=== PATIENT | male | born 1955 | race Caucasian/White ===

== ENCOUNTER 2018-06-16 18:27 | Inpatient (IN) | payer MEDICARE, OTHER ==
[2018-06-16] MEDS ORDERED: VANCOMYCIN IV PER PHARMACY 1 EACH MISC MISCELLANE PRN (19:00)
[2018-06-16] MEDS ORDERED: LEVOFLOXACIN 750MG-D5W PMX 750 MG in DEXTROSE/WATER 1 150ML.BAG IVPB STA (19:00)
[2018-06-16 19:14] LABS: Basophils % (A) 0 %; Eosinophils % (A) 0 %; HGB 15.3 gm/dL (13.0-17.5); Lymphocytes # (A) 1.4 k/uL (1.0-4.8); Lymphocytes % (A) 8 %; MCH 30.6 pg (25.0-35.0); MCHC 33.9 g/dL (31.0-37.0); MCV 90.3 fL (80.0-100.0); Mean Platelet Volume 6.8; Monocytes % (A) 6 %; Neutrophils # (A) 14.8 k/uL (1.3-7.7); Neutrophils % (A) 85 %; Platelet Count 242 k/uL (150-450); RBC 4.99 m/uL (4.30-5.90); RDW 13.3 % (11.5-15.5); WBC 17.5 k/uL (3.8-10.6)
[2018-06-16] MEDS: SODIUM CHLORIDE 0.9% 500 ML 500 ML IV SCH ×4 (19:14→21:38)
[2018-06-16 19:23] LABS: Appearance,Urine Cloudy (Clear); Bacteria,Urine Occasional /hpf; Bilirubin,Urine Negative (Negative); Blood,Urine Small (Negative); Color,Urine Yellow; Glucose,Urine (UA) Negative (Negative); Ketones,Urine Negative (Negative); Leukocyte Esterase,Urine Large (Negative); Mucus,Urine Few /hpf; Nitrite,Urine Positive (Negative); PH, Urine 5.5 (5.0-8.0); Protein,Urine Trace (Negative); RBC,Urine 6 /hpf (0-5); Specific Gravity,Urine 1.023 (1.001-1.035); Squamous Epithelial Cell,Urine 1 /hpf (0-4); Urobilinogen,Urine <2.0 mg/dL (<2.0); WBC,Urine 159 /hpf (0-5)
[2018-06-16 19:25] LABS: Albumin 3.9 g/dL (3.5-5.0); Calcium 9.4 mg/dL (8.4-10.2); Total Bilirubin 0.9 mg/dL (0.2-1.3); Total Protein 6.6 g/dL (6.3-8.2)
[2018-06-16 19:29] LABS: Partial Thromboplastin Time 27.7 sec (22.0-30.0); Prothrombin Time 10.4 sec (9.0-12.0)
[2018-06-16] MEDS ORDERED: VANCOMYCIN 1,750 MG in SODIUM CHLORIDE 0.9% 500 ML 500 ML IVPB ONE (19:30)
[2018-06-16 19:34] LABS: Potassium 4.2 mmol/L (3.5-5.1)
--- NOTE | 2018-06-16 20:03 | XR ---
EXAMINATION TYPE: XR abdomen 2V DATE OF EXAM: 06/16/2018 CLINICAL HISTORY: Abdominal pain with dysuria TECHNIQUE: 2 supine AP images of the abdomen obtained. COMPARISON: None. FINDINGS: Upright radiograph reveals no evidence of pneumoperitoneum. There is no dilated loops of la rge or small bowel. Limited evaluation of lower thorax is unremarkable. No evidence of acute osseous pathology. No abnormal intra-abdominal or pelvic calcifications. Degenerative type changes are noted of the hips and sacroiliac joints. There is loss of delineation of the inferolateral right aspect of the sacrum. This is likely secondary to overlying bowel gas. IMPRESSION: 1. No acute intra-abdominal or pelvic process. 2. Loss of the cortical delineation of the inferolateral right aspect of the sacrum. This is favored to be projectional from overlying bowel gas. Recommend short-term radiographic follow-up of the sacru m in multiple projections to exclude an underlying lytic osseous lesion.
--- NOTE | 2018-06-16 20:07 | XR ---
EXAMINATION TYPE: XR chest 2V DATE OF EXAM: 06/16/2018 COMPARISON: NONE HISTORY: Fever TECHNIQUE: Frontal and lateral views of the chest are obtained. FINDINGS: Minimal bibasilar subsegmental atelectasis. No focal airspace disease. No pleural effusion or pneumothorax. The cardiothymic silhouette is within normal limits. Limits evaluation of the upper abdomen is unremarkable. Osseous structures are intact. IMPRESSION: No acute cardiopulmonary process.
--- NOTE | 2018-06-16 20:09 | ED ---
General Adult HPI - General Chief complaint: Abdominal Pain Stated complaint: ABDOMINAL PAIN, HEAD PAIN, COLD Time Seen by Provider: 06/16/18 18:43 Source: patient, family, RN notes reviewed, old records reviewed Mode of arrival: ambulatory Limitations: no limitations - History of Present Illness Initial comments: Chief complaint and history of present illness this is a 63-year-old male here with family. The patient reports since 4 AM he's had a fever and difficulty urinating. He reports he urinates every 5 minutes only a few drops. Also hurts when he does it. Patient reports happened one time before when he was much younger. - Related Data Home Medications Medication Instructions Recorded Confirmed Acetaminophen [Tylenol] 325 mg PO Q4H PRN 06/16/18 06/16/18 Allergies Allergy/AdvReac Type Severity Reaction Status Date / Time Penicillins Allergy Unknown Verified 06/16/18 19:10 Review of Systems ROS Statement: Those systems with pertinent positive or pertinent negative responses have been documented in the HPI. Review of systems. Mild headache but no evidence of any meningeal irritation. Denies any chest pain or shortness of breath and complains of suprapubic area discomfort. Also reports she's had a long-standing left hernia. Patient is complaining of frequency urgency and dysuria with fever at home. The patient is edentulous and difficult to understand everything he says because he has difficulty pronouncing certain words. Review of previous CAT scan evaluation of his abdomen. It was reported that he may have renal cell carcinoma on the left kidney. Patient reports she's never had surgery. Denies ever having had a biopsy of that area either. To his knowledge he has not had cancer. He does report that he was evaluated for the left inguinal hernia but did not like the surgeon and never went back. Past medical problems; intestinal infections, surgeries include left ankle surgery with a plate. Family history significant for lung cancer. Patient has ALLERGIES to penicillin which causes symptoms vomit. He does not have anaphylactic reactions. Patient denies smoking denies drinking. ROS Other: All systems not noted in ROS Statement are negative. Past Medical History Past Medical History: No Reported History History of Any Multi-Drug Resistant Organisms: None Reported Additional Past Surgical History / Comment(s): left ankle surgery Past Psychological History: PTSD Smoking Status: Former smoker Past Alcohol Use History: None Reported Past Drug Use History: None Reported General Exam - General Exam Comments Initial Comments: General: The patient is awake and alert, he with a complaint of fever, frequency urgency and dysuria. Lower abdominal discomfort. Vital signs shows temperature 100, pulse 131, respiratory rate 20 blood pressure 102/67, pulse ox 99% on room air. Eye: Pupils are equal, round and reactive to light, extra-ocular movements are intact ; there is normal conjunctiva bilaterally. No signs of icterus. Ears, nose, mouth and throat: There are moist mucous membranes and no oral lesions. Patient is edentulous. Difficulty with pronunciation. Neck: The neck is supple, there is no tenderness. Cardiovascular: There is a regular rate and rhythm. No murmur, rub or gallop is appreciated. Respiratory: Lungs are clear to auscultation, respirations are non-labored, breath sounds are equal. No wheezes, stridor, rales, or rhonchi. Gastrointestinal: Patient complains of suprapubic discomfort with frequency urgency and dysuria. Large left inguinal hernia filling the left scrotum. Back: There is no tenderness to palpation in the midline. There is no obvious deformity. No rashes noted. Musculoskeletal: Normal ROM, no tenderness, There is no pedal edema. There is no calf tenderness or swelling. Sensation intact. Pulses equal bilaterally 2+. Neurological: CN II-XII intact, There are no obvious motor or sensory deficits. Coordination appears grossly intact. Speech is normal. No focal or lateralizing findings Skin: Skin is warm and dry and no rashes or lesions are noted. Psychiatric: Cooperative, Limitations: no limitations Course Vital Signs 06/16/18 06/16/18 06/16/18 18:29 19:00 19:21 Temperature 99.6 F 100.1 F H Pulse Rate 131 H 112 H Respiratory 20 18 Rate Blood Pressure 102/67 108/78 O2 Sat by Pulse 99 99 Oximetry 06/16/18 06/16/18 06/16/18 20:50 22:12 23:16 Temperature 99.1 F Pulse Rate 100 100 102 H Respiratory 17 18 17 Rate Blood Pressure 98/71 103/71 106/59 O2 Sat by Pulse 99 99 99 Oximetry EKG Findings - EKG Comments: EKG Findings:: EKG was done and reviewed at 1847 showing sinus tachycardia rate 111. Nonspecific ST T wave changes. [place] interval was 138 QRS 88 QT [address] Hoffman Medical Decision Making - Medical Decision Making Medical decision making; 63-year-old male who comes emergency room because of difficulty urinating with frequency urgency and dysuria. This all started around 4 AM. Presents emergency room with a temperature of 100.1. The patient's labs show white count of 17 hemoglobin 15 hematocrit of 45 with a potassium of 4.2. BUN 18 creatinine 1.05 with a GFR 75. Glucose 116. Urine shows positive for nitrite and leuk esterase. 6 red blood cells and 159 white cells. The patient's urine was being cultured. patient was hydrated with 2 L of normal saline. At that time he was also started on vancomycin and Levaquin (Levaquin was used because initially the patient said he had an ALLERGY to penicillin.. Patient states he has now to penicillin but only causes nausea and vomiting. No anaphylactic type reaction. X-ray show; x-ray of the abdomen was done and reviewed by radiologist his impression is no acute intra-abdominal or pelvic processes. Loss of cortical delineation of the inferolateral right aspect of the sacrum. This is favored to be projectional from overlying bowel gas. Recommend short-term radiograph follow-up of the sacrum in multiple projections to exclude underlying lytic osseous lesion. As read by Dr. Washington. X-ray of the chest was done and reviewed by radiologist his findings are; minimal bibasal sub-segmental atelectasis. No focal airspace disease. No pleural effusion or pneumothorax. The cardiothymic silhouette is normal limits. Limits evaluation of the upper abdomen is unremarkable. Osseous structures are intact. Impression no acute cardiopulmonary process. As read by Dr. Washington Patient had CAT scan of the abdomen with IV and oral contrast. The radiologist' s impression includes there is some mild infiltrate and atelectasis in the lung bases. There is a hiatal hernia. There is no pleural effusion. There is 1 cm cyst in the right lobe of the liver. The bile ducts were not dilated. Gallbladder appears normal. Spleen is normal. There is no pancreatic mass. There is a 3.9 cm rounded enhancing mass on the lateral aspect of the left kidney. This also contained some fat. The kidney shows satisfactory contrast opacification. There are left sided renal parapelvic cyst. Ureter is not dilated. There is no hydronephrosis. There is no retroperitoneal adenopathy. Bladder distended smoothly. There is a large left sided inguinal and scrotal hernia contains bowel. This contained some sigmoid colon. I see no evidence of bowel obstruction. The small bowel appears normal. There is no evidence of a thickened appendix. There is no mesenteric edema or adenopathy. Lumbar spine is intact. The bony pelvis intact. There is no compression fracture. Impression; exophytic left renal mass is a few millimeters larger than old computed tomography scan. 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 Stable left renal parapelvic cyst. No renal obstruction. Large left sided scrotal hernia unchanged. Hiatal hernia unchanged. No infiltrate at the lung bases compared to old exam. As read by Dr. Hargrove The patient be admitted for further evaluation and continued antibiotic therapy. Admitting diagnosis urinary tract infection The case discussed Dr. Solano patient be admitted to her service. We did discuss the patient's CAT scan results including the left inguinal hernia. The patient will continue on IV antibiotics. On discharge patient's heart rate was 96 blood pressure 106/59 patient is alert - Lab Data Result diagrams: 06/16/18 18:45 06/16/18 18:45 Lab Results 06/16/18 06/16/18 06/16/18 Range/Units 18:45 18:45 18:45 WBC 17.5 H (3.8-10.6) k/uL RBC 4.99 (4.30-5.90) m/uL Hgb 15.3 (13.0-17.5) gm/dL Hct 45.0 (39.0-53.0) % MCV 90.3 (80.0-100.0) fL MCH 30.6 (25.0-35.0) pg MCHC 33.9 (31.0-37.0) g/dL RDW 13.3 (11.5-15.5) % Plt Count 242 (150-450) k/uL Neutrophils % 85 % Lymphocytes % 8 % Monocytes % 6 % Eosinophils % 0 % Basophils % 0 % Neutrophils # 14.8 H (1.3-7.7) k/uL Lymphocytes # 1.4 (1.0-4.8) k/uL Monocytes # 1.0 (0-1.0) k/uL Eosinophils # 0.0 (0-0.7) k/uL Basophils # 0.0 (0-0.2) k/uL PT (9.0-12.0) sec INR (<1.2) APTT (22.0-30.0) sec Sodium 137 (137-145) mmol/L Potassium 4.2 (3.5-5.1) mmol/L Chloride 104 (98-107) mmol/L Carbon Dioxide 25 (22-30) mmol/L Anion Gap 8 mmol/L BUN 18 (9-20) mg/dL Creatinine 1.05 (0.66-1.25) mg/dL Est GFR (CKD-EPI)AfAm 86 (>60 ml/min/1.73 sqM) Est GFR (CKD-EPI)NonAf 75 (>60 ml/min/1.73 sqM) Glucose 116 H (74-99) mg/dL Plasma Lactic Acid Tan 1.2 (0.7-2.0) mmol/L Calcium 9.4 (8.4-10.2) mg/dL Total Bilirubin 0.9 (0.2-1.3) mg/dL AST 17 (17-59) U/L ALT 25 (21-72) U/L Alkaline Phosphatase 100 (38-126) U/L Total Protein 6.6 (6.3-8.2) g/dL Albumin 3.9 (3.5-5.0) g/dL Urine Color Urine Appearance (Clear) Urine pH (5.0-8.0) Ur Specific [place] (1.001-1.035) Urine Protein (Negative) Urine Glucose (UA) (Negative) Urine Ketones (Negative) Urine Blood (Negative) Urine Nitrite (Negative) Urine Bilirubin (Negative) Urine Urobilinogen (<2.0) mg/dL Ur Leukocyte Esterase (Negative) Urine RBC (0-5) /hpf Urine WBC (0-5) /hpf Ur Squamous Epith Cells (0-4) /hpf Urine Bacteria (None) /hpf Urine Mucus (None) /hpf Influenza Type A RNA (Not Detectd) Influenza Type B (PCR) (Not Detectd) 06/16/18 06/16/18 06/16/18 Range/Units 18:45 18:52 19:05 WBC (3.8-10.6) k/uL RBC (4.30-5.90) m/uL Hgb (13.0-17.5) gm/dL Hct (39.0-53.0) % MCV (80.0-100.0) fL MCH (25.0-35.0) pg MCHC (31.0-37.0) g/dL RDW (11.5-15.5) % Plt Count (150-450) k/uL Neutrophils % % Lymphocytes % % Monocytes % % Eosinophils % % Basophils % % Neutrophils # (1.3-7.7) k/uL Lymphocytes # (1.0-4.8) k/uL Monocytes # (0-1.0) k/uL Eosinophils # (0-0.7) k/uL Basophils # (0-0.2) k/uL PT 10.4 (9.0-12.0) sec INR 1.0 (<1.2) APTT 27.7 (22.0-30.0) sec Sodium (137-145) mmol/L Potassium (3.5-5.1) mmol/L Chloride (98-107) mmol/L Carbon Dioxide (22-30) mmol/L Anion Gap mmol/L BUN (9-20) mg/dL Creatinine (0.66-1.25) mg/dL Est GFR (CKD-EPI)AfAm (>60 ml/min/1.73 sqM) Est GFR (CKD-EPI)NonAf (>60 ml/min/1.73 sqM) Glucose (74-99) mg/dL Plasma Lactic Acid Tan (0.7-2.0) mmol/L Calcium (8.4-10.2) mg/dL Total Bilirubin (0.2-1.3) mg/dL AST (17-59) U/L ALT (21-72) U/L Alkaline Phosphatase (38-126) U/L Total Protein (6.3-8.2) g/dL Albumin (3.5-5.0) g/dL Urine Color Yellow Urine Appearance Cloudy (Clear) Urine pH 5.5 (5.0-8.0) Ur Specific [place] 1.023 (1.001-1.035) Urine Protein Trace H (Negative) Urine Glucose (UA) Negative (Negative) Urine Ketones Negative (Negative) Urine Blood Small H (Negative) Urine Nitrite Positive (Negative) Urine Bilirubin Negative (Negative) Urine Urobilinogen <2.0 (<2.0) mg/dL Ur Leukocyte Esterase Large H (Negative) Urine RBC 6 H (0-5) /hpf Urine WBC 159 H (0-5) /hpf Ur Squamous Epith Cells 1 (0-4) /hpf Urine Bacteria Occasional H (None) /hpf Urine Mucus Few H (None) /hpf Influenza Type A RNA Not Detected (Not Detectd) Influenza Type B (PCR) Not Detected (Not Detectd) Disposition Clinical Impression: Urinary tract infection, History of left inguinal hernia Disposition: ADMITTED IP TO THIS HOSP Condition: Fair Referrals: Linh Matthews MD [Primary Care Provider] - 1-2 days
[2018-06-16] MEDS ORDERED: IOPAMIDOL-300 CONTRAST 30 ML VIAL (ORAL USE) PO PRN (20:53)
--- NOTE | 2018-06-16 23:14 | CT ---
EXAMINATION TYPE: CT abdomen pelvis w con DATE OF EXAM: 06/16/2018 COMPARISON: 04/06/2016 HISTORY: Lower abdominal pain CT DLP: 1414.1 mGycm Automated exposure control for dose reduction was used. TECHNIQUE: Helical acquisition of images was performed from the lung bases through the pelvis. CONTRAST: Performed with Oral Contrast and with IV Contrast, patient injected with 100 mL of Isovue 300. FINDINGS: There is some mild infiltrate and atelectasis at the lung bases. There is hiatal hernia. There is no pleural effusion. There is 1.5 cm cyst in the right lobe of the liver. The bile ducts are not dilated. Gallbladder appe ars normal. Spleen is normal. There is no pancreatic mass. There is 3.9 cm rounded enhancing mass on the lateral aspect of the left kidney. This also contains some fat. The kidneys show satisfactory con trast opacification. There are left-sided renal parapelvic cysts. The ureters are not dilated. There is no hydronephrosis. There is no retroperitoneal adenopathy. Bladder distends smoothly. There is a large left side inguinal and scrotal hernia that contains bowel . This contains some sigmoid colon. I see no evidence of a bowel obstruction. The small bowel appears normal. There is no evidence of a thickened appendix. There is no mesenteric edema or adenopathy. Reyna mbar spine is intact. The bony pelvis is intact. There is no compression fracture. IMPRESSION: EXOPHYTIC LEFT RENAL MASS IS A FEW MILLIMETERS LARGER THAN OLD CT SCAN. 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 STABLE LEFT RENAL PARAPELVIC CYST. NO RENAL OBSTRUCTION. LARGE LEFT SIDE SCROTAL HERNIA UNCHANGED. HIATAL HERNIA UNCHANGED. NEW INFILTRATES AT THE LUNG BASES COMPARED TO OLD EXAM.
[2018-06-16] MEDS ORDERED: NALOXONE 0.4 MG/ML 1 ML VIAL IV PRN (23:33)
[2018-06-17 00:50] VITALS: BMI 30.9
[2018-06-17] MEDS: ACETAMINOPHEN TAB 325 MG TAB PO PRN (01:02)
[2018-06-17 05:46] LABS: Basophils % (A) 0 %; Eosinophils % (A) 0 %; HCT 39.8 % (39.0-53.0); HGB 13.4 gm/dL (13.0-17.5); Lymphocytes # (A) 2.5 k/uL (1.0-4.8); Lymphocytes % (A) 16 %; MCH 30.7 pg (25.0-35.0); MCHC 33.6 g/dL (31.0-37.0); MCV 91.4 fL (80.0-100.0); Monocytes # (A) 0.9 k/uL (0-1.0); Monocytes % (A) 6 %; Neutrophils % (A) 76 %; Platelet Count 199 k/uL (150-450); RBC 4.35 m/uL (4.30-5.90); RDW 13.4 % (11.5-15.5); WBC 15.8 k/uL (3.8-10.6)
[2018-06-17 06:00] LABS: Albumin 3.1 g/dL (3.5-5.0); Potassium 4.4 mmol/L (3.5-5.1); Total Bilirubin 0.9 mg/dL (0.2-1.3); Total Protein 5.6 g/dL (6.3-8.2)
[2018-06-17 06:39] LABS: Calcium 8.7 mg/dL (8.4-10.2)
[2018-06-17] MEDS: FAMOTIDINE 20 MG TAB PO SCH ×2 (08:10→20:46)
[2018-06-17] MEDS ORDERED: VANCOMYCIN 1,750 MG in SODIUM CHLORIDE 0.9% 500 ML 500 ML IVPB SCH ×4 (09:00)
[2018-06-17] MEDS ORDERED: VANCOMYCIN IV PER PHARMACY 1 EACH MISC MISCELLANE PRN (09:48)
[2018-06-17] MEDS ORDERED: SODIUM CHLORIDE 0.9% 1,000 ML IV ONE (09:50)
[2018-06-17] MEDS ORDERED: HYDROcodone/APAP 5-325MG 1 EACH TAB PO PRN (10:06)
--- NOTE | 2018-06-17 10:06 | P.HPIM ---
History of Present Illness This is a pleasant 63% small with past medical history of pneumonia and left inguinal hernia about 10 years ago. Patient presents because of dysuria and difficulty urinating. Patient states that his problems started last Sunday by 3 days ago with dysuria and urgency with increased frequency small amount of urine. And yesterday he could not void so he decided to come to the emergency room. Patient was complaining also from loose bowel movement and mild right upper quadrant abdominal pain. He was comes in with dry cough no phlegm. No much dyspnea or chest pain. On admission he had a fever of 100.1. Blood pressure or Currently he is Little bit hypotensive 98/61. Currently his blood pressure. Bolus of 1 L of fluid is a provided and started on normal saline 100 mm per hour Patient already given ceftriaxone, levofloxacin and IV vancomycin twice a day in the emergency room. on admission showing creatinine 1.05, and this morning 1.02. Rest of the CMP was unremarkable. Leukocytosis of 17.5, down to 15.8 K. Darline CBC was unremarkable. Urinalysis was suspicious for infection with large leukocyte esterase and WBC 159 in the urine. Urine culture sent and result is pending. Review of Systems CONSTITUTIONAL: No fever, no malaise, no fatigue. HEENT: No recent visual problems or hearing problems. Denied any sore throat. CARDIOVASCULAR: No orthopnea, PND, no palpitations, no syncope. PULMONARY: No shortness of breath, no cough, no hemoptysis. GASTROINTESTINAL: No diarrhea, no nausea, no vomiting, no abdominal pain. Normoactive bowel sounds. NEUROLOGICAL: No headaches, no weakness, no numbness. HEMATOLOGICAL: Denies any bleeding or petechiae. GENITOURINARY: Denies any burning micturition, frequency, or urgency. MUSCULOSKELETAL/RHEUMATOLOGICAL: Denies any joint pain, swelling, or any muscle pain. ENDOCRINE: Denies any polyuria or polydipsia. Past Medical History Past Medical History: Pneumonia Additional Past Medical History / Comment(s): Inguinal hernia for 10 years History of Any Multi-Drug Resistant Organisms: None Reported Additional Past Surgical History / Comment(s): left ankle surgery Past Anesthesia/Blood Transfusion Reactions: No Reported Reaction Past Psychological History: PTSD Smoking Status: Never smoker Past Alcohol Use History: None Reported Past Drug Use History: None Reported Medications and Allergies Home Medications Medication Instructions Recorded Confirmed Type Acetaminophen [Tylenol] 325 mg PO Q4H PRN 06/16/18 06/16/18 History Allergies Allergy/AdvReac Type Severity Reaction Status Date / Time Penicillins Allergy Unknown Verified 06/16/18 19:10 Physical Exam Vitals: Vital Signs Temp Pulse Pulse Resp BP BP Pulse Ox 06/17/18 08:00 98.4 F 83 18 98/61 97 06/17/18 04:00 98.5 F 90 16 96/63 97 06/17/18 01:12 98.6 F 96 16 119/70 99 06/17/18 00:23 99.3 F 98 18 105/58 99 06/16/18 23:16 102 H 17 106/59 99 06/16/18 22:12 100 18 103/71 99 06/16/18 20:50 99.1 F 100 17 98/71 99 06/16/18 19:21 112 H 18 108/78 99 06/16/18 19:00 100.1 F H 06/16/18 18:29 99.6 F 131 H 20 102/67 99 Intake and Output 06/16/18 06/17/18 06/17/18 22:59 06:59 14:59 Output Total 825 200 Balance -825 -200 Output: Urine 825 200 Other: # Voids 0 Weight 104.326 kg 109.5 kg Results CBC & Chem 7: 06/17/18 05:10 06/17/18 05:10 Labs: Abnormal Lab Results - Last 24 Hours (Table) 06/16/18 06/16/18 06/16/18 Range/Units 18:45 18:45 18:52 WBC 17.5 H (3.8-10.6) k/uL Neutrophils # 14.8 H (1.3-7.7) k/uL Sodium (137-145) mmol/L Glucose 116 H (74-99) mg/dL AST (17-59) U/L Total Protein (6.3-8.2) g/dL Albumin (3.5-5.0) g/dL Urine Protein Trace H (Negative) Urine Blood Small H (Negative) Ur Leukocyte Esterase Large H (Negative) Urine RBC 6 H (0-5) /hpf Urine WBC 159 H (0-5) /hpf Urine Bacteria Occasional H (None) /hpf Urine Mucus Few H (None) /hpf 06/17/18 06/17/18 Range/Units 05:10 05:10 WBC 15.8 H (3.8-10.6) k/uL Neutrophils # 12.0 H (1.3-7.7) k/uL Sodium 135 L (137-145) mmol/L Glucose 104 H (74-99) mg/dL AST 15 L (17-59) U/L Total Protein 5.6 L (6.3-8.2) g/dL Albumin 3.1 L (3.5-5.0) g/dL Urine Protein (Negative) Urine Blood (Negative) Ur Leukocyte Esterase (Negative) Urine RBC (0-5) /hpf Urine WBC (0-5) /hpf Urine Bacteria (None) /hpf Urine Mucus (None) /hpf Microbiology - Last 24 Hours (Table) 06/16/18 18:52 Urine Culture - Preliminary Urine,Voided Thrombosis Risk Factor Assmnt - Choose All That Apply Any of the Below Risk Factors Present?: Yes Each Factor Represents 1 point: Obesity (BMI >25), Swollen legs (current) Other Risk Factors: Yes Each Risk Factor Represents 2 Points: Age 61-74 years Thrombosis Risk Factor Assessment Total Risk Factor Score: 4 Thrombosis Risk Factor Assessment Level: Moderate Risk Assessment and Plan Assessment: Acute urinary tract infection New infiltrate and lung bases, suspicious for pneumonia, mild Leukocytosis, secondary to above Left kidney mass, about 3.9 cm. Suspicious for angiomyolipoma Loose bowel movement, mostly reactive diarrhea. Right lobe hepatic cyst, 1.5 cm Large left side inguinal and scrotal hernia. Plan: This is a pleasant 63 years old male who presents with UTI,and enlarging left renal mass. Continue with antibiotics, continue with IV fluids. Urological consult. Call infectious disease consult. Bladder scan. Pain management. Labs and medication were reviewed. Continue same treatment. Continue with symptomatic treatment. Resume home medication. Monitor lytes and vitals. DVT and GI prophylaxis. Further recommendations of the clinical course of the patient DVT prophylaxis: Subcutaneous heparin GI Prophylaxis: Pepcid PT/OT: Pending Prognosis is guarded
[2018-06-17] MEDS: SODIUM CHLORIDE 0.9% 1,000 ML IV SCH ×2 (10:15→20:47)
[2018-06-17] MEDS: HEPARIN SODIUM,PORCINE 5,000 UNIT/ML 1 ML VIAL SQ SCH ×2 (10:15→20:46)
[2018-06-17] MEDS ORDERED: LEVOFLOXACIN 500MG-D5W PMX 500 MG in DEXTROSE/WATER 1 100ML.BAG IVPB SCH (19:00)
--- NOTE | 2018-06-17 19:36 | P.GSCN ---
History of Present Illness Consult date: 06/17/18 Reason for Consult: Febrile urinary tract infection and left renal mass History of present illness: The patient is a 63-year-old male admitted through the emergency room late on for treatment of a urinary tract infection associated with a fever. The patient says that his symptoms began on the morning of 06/15 and included urinary frequency with urgency and chills. He said that his urine was dark colored and there was dysuria. He denied any gross hematuria. He had no abdominal or flank pain. His symptoms continued and he was seen in the emergency room on 06/16. He had a temperature of 100.1. White blood count was 17,500. Lactic acid was 1.2. BUN/creatinine were 18/1.05. A urinalysis was positive for nitrite and showed evidence of pyuria. Computed tomography scan of the abdomen and pelvis was obtained and identified a 3.9 cm mass in the lateral superior pole of the right kidney which had increased slightly in size from a previous computed tomography scan performed in 04/2016. The radiologist thought that there was some fat present within the mass suggestive of an angiomyolipoma. Since the patient was admitted he has been afebrile. His postvoid residual has been checked multiple times and is low. He says that his dysuria and urinary frequency have improved since he was admitted. He says that he experienced a urinary tract infection over 20 years ago but has had no problems since then. He normally voids every 3-4 hours during the day and twice at night. I had previously seen this patient in 05/2016 due to the mass noted in the upper pole of left kidney on a computed tomography scan of the abdomen with IV contrast which was done on 04/23/2016. The mass was suggestive of a renal cell carcinoma and I discussed treatment via partial nephrectomy or an ablative procedure with the patient at that time but he did not set up an appoint to discuss this further. He also did not show up for an appointment that was made for him later in 2017. He has had no imaging of his kidneys since then. He has no abdominal pain and has never experienced gross hematuria. Review of Systems - Constitutional Reports anorexia, Reports chills, Reports fever, Reports malaise - Cardiovascular Denies chest pain, Denies shortness of breath - Respiratory Denies cough - Gastrointestinal Reports diarrhea, Denies abdominal pain, Denies vomiting - Genitourinary Reports as per HPI Past Medical History Past Medical History: Pneumonia Additional Past Medical History / Comment(s): Inguinal hernia for 10 years History of Any Multi-Drug Resistant Organisms: None Reported Additional Past Surgical History / Comment(s): left ankle surgery Past Anesthesia/Blood Transfusion Reactions: No Reported Reaction Past Psychological History: PTSD Smoking Status: Never smoker Past Alcohol Use History: None Reported Past Drug Use History: None Reported Medications and Allergies Home Medications Medication Instructions Recorded Confirmed Type Acetaminophen [Tylenol] 325 mg PO Q4H PRN 06/16/18 06/16/18 History Allergies Allergy/AdvReac Type Severity Reaction Status Date / Time Penicillins Allergy Unknown Verified 06/16/18 19:10 Surgical - Exam Vital Signs Temp Pulse Resp BP Pulse Ox 99.6 F 131 H 20 102/67 99 06/16/18 18:29 06/16/18 18:29 06/16/18 18:29 06/16/18 18:29 06/16/18 18:29 - General well developed, well nourished, no distress - ENT no hearing loss - Neck no masses, no lymphadectomy - Respiratory normal respiratory effort - Abdomen Abdomen: soft, non tender, no organomegaly Hernia: inguinal (Large left inguinal hernia which is chronic and dates back over 10 years) - Genitourinary normal penis with no external lesions, testicles non-tender Results - Labs 06/17/18 05:10 06/17/18 05:10 Abnormal Lab Results - Last 24 Hours (Table) 06/16/18 06/16/18 06/16/18 Range/Units 18:45 18:45 18:52 WBC 17.5 H (3.8-10.6) k/uL Neutrophils # 14.8 H (1.3-7.7) k/uL Sodium (137-145) mmol/L Glucose 116 H (74-99) mg/dL AST (17-59) U/L Total Protein (6.3-8.2) g/dL Albumin (3.5-5.0) g/dL Urine Protein Trace H (Negative) Urine Blood Small H (Negative) Ur Leukocyte Esterase Large H (Negative) Urine RBC 6 H (0-5) /hpf Urine WBC 159 H (0-5) /hpf Urine Bacteria Occasional H (None) /hpf Urine Mucus Few H (None) /hpf 06/17/18 06/17/18 Range/Units 05:10 05:10 WBC 15.8 H (3.8-10.6) k/uL Neutrophils # 12.0 H (1.3-7.7) k/uL Sodium 135 L (137-145) mmol/L Glucose 104 H (74-99) mg/dL AST 15 L (17-59) U/L Total Protein 5.6 L (6.3-8.2) g/dL Albumin 3.1 L (3.5-5.0) g/dL Urine Protein (Negative) Urine Blood (Negative) Ur Leukocyte Esterase (Negative) Urine RBC (0-5) /hpf Urine WBC (0-5) /hpf Urine Bacteria (None) /hpf Urine Mucus (None) /hpf Microbiology - Last 24 Hours (Table) 06/16/18 18:52 Urine Culture - Preliminary Urine,Voided Diabetes panel 06/16/18 06/17/18 Range/Units 18:45 05:10 Sodium 137 135 L (137-145) mmol/L Potassium 4.2 4.4 (3.5-5.1) mmol/L Chloride 104 106 (98-107) mmol/L Carbon Dioxide 25 24 (22-30) mmol/L BUN 18 16 (9-20) mg/dL Creatinine 1.05 1.02 (0.66-1.25) mg/dL Glucose 116 H 104 H (74-99) mg/dL Calcium 9.4 8.7 (8.4-10.2) mg/dL AST 17 15 L (17-59) U/L ALT 25 22 (21-72) U/L Alkaline Phosphatase 100 69 (38-126) U/L Total Protein 6.6 5.6 L (6.3-8.2) g/dL Albumin 3.9 3.1 L (3.5-5.0) g/dL Calcium panel 06/16/18 06/17/18 Range/Units 18:45 05:10 Calcium 9.4 8.7 (8.4-10.2) mg/dL Albumin 3.9 3.1 L (3.5-5.0) g/dL Pituitary panel 06/16/18 06/17/18 Range/Units 18:45 05:10 Sodium 137 135 L (137-145) mmol/L Potassium 4.2 4.4 (3.5-5.1) mmol/L Chloride 104 106 (98-107) mmol/L Carbon Dioxide 25 24 (22-30) mmol/L BUN 18 16 (9-20) mg/dL Creatinine 1.05 1.02 (0.66-1.25) mg/dL Glucose 116 H 104 H (74-99) mg/dL Calcium 9.4 8.7 (8.4-10.2) mg/dL Adrenal panel 06/16/18 06/17/18 Range/Units 18:45 05:10 Sodium 137 135 L (137-145) mmol/L Potassium 4.2 4.4 (3.5-5.1) mmol/L Chloride 104 106 (98-107) mmol/L Carbon Dioxide 25 24 (22-30) mmol/L BUN 18 16 (9-20) mg/dL Creatinine 1.05 1.02 (0.66-1.25) mg/dL Glucose 116 H 104 H (74-99) mg/dL Calcium 9.4 8.7 (8.4-10.2) mg/dL Total Bilirubin 0.9 0.9 (0.2-1.3) mg/dL AST 17 15 L (17-59) U/L ALT 25 22 (21-72) U/L Alkaline Phosphatase 100 69 (38-126) U/L Total Protein 6.6 5.6 L (6.3-8.2) g/dL Albumin 3.9 3.1 L (3.5-5.0) g/dL Assessment and Plan (1) Urinary tract infection Narrative/Plan: The patient has a fever associated with a urinary tract infection which may have been an early prostatitis. He has responded to a combination of vancomycin and Levaquin and is emptying his bladder completely. Once the urine culture has been finalized it will most likely be possible to treat the patient as an outpatient with an oral antibiotic like Cipro or Levaquin. Current Visit: Yes Status: Acute Code(s): N39.0 - URINARY TRACT INFECTION, SITE NOT SPECIFIED SNOMED Code(s): 69001656 (2) Left renal mass Narrative/Plan: The patient has a left renal mass which currently measures 3.8 x 3.1 x 3.9 cm in size. In 2017 the mass measured 3.4 x 3.1 x 3.4 cm. I do not believe the mass contains fat based on my review of the computed tomography scan and I believe the mass is more suggestive of a renal cell carcinoma. The patient's family history is significant in that a brother also had kidney cancer. I discussed the possibility of laparoscopic partial nephrectomy or a percutaneous ablative procedure in the future and the patient appears to be interested in this. This could be arranged following resolution of his febrile urinary tract infection. Current Visit: Yes Status: Acute Code(s): N28.89 - OTHER SPECIFIED DISORDERS OF KIDNEY AND URETER SNOMED Code(s): 518087481
[2018-06-17] MEDS: cefTRIAXone 2,000 MG in SODIUM CHLORIDE 0.9% 100 ML IVPB SCH (20:46)
--- NOTE | 2018-06-17 22:26 | CONS ---
CONSULTATION DATE OF SERVICE: 06/17/2018. REASON FOR CONSULTATION: Complicated urinary tract infection and antibiotic recommendation. HISTORY OF PRESENT ILLNESS: The patient is a 63-year-old male presenting to the ER at [facility] on 06/16/2018 with chief complaints of difficulty urination and fever. The patient has been urinating every 5 minutes only a few drops and it hurts to urinate. The patient describes the pain to be more of a burning in nature 3 to 4/10, and no radiation. The patient denies having any suprapubic or flank pain. No nausea, no vomiting. With these symptoms, the patient has been evaluated by the ER physician. On arrival to the ER, patient did have a low-grade fever of 100.1 degrees Fahrenheit. The patient did have elevated white count 17.5. The patient UA was positive with large leukocyte esterase with 159 WBC. Cultures currently showing a gram-negative bacilli. The patient influenza PCR was negative. The patient did have an abdominal pelvis CT which shows exophytic left renal mass which is slightly larger than the previous CAT scan. The scrotal hernia new infiltrate in the lung base. The patient did receive a dose of Rocephin in the ER and subsequently admitted to the hospital on Levaquin and vancomycin. I was asked to see the patient today for further recommendation regarding antibiotic therapy. REVIEW OF SYSTEMS: CONSTITUTIONAL: Positive for weakness and fever. Eyes no complaint. ENT no complaint. Respiratory no complaint. Cardiovascular no complaint. Genitourinary as per HPI. Gastrointestinal: No complaint. Musculoskeletal no complaint. Integumentary: No complaint. Psychological no complaint. Endocrine no complaint. Neurologic no complaint. PAST MEDICAL HISTORY: PTSD, pneumonia, UTI, inguinal hernia. PAST SURGICAL HISTORY: Left ankle surgery. SOCIAL HISTORY: The patient denies smoking, drinking or drug use. FAMILY HISTORY: Brother history of kidney cancer. ALLERGIES: TO PENICILLIN, reaction. Did receive Rocephin in the ER without any problem. MEDICATION: Medications include the patient is currently on Tylenol, [place], Pepcid, heparin, Levaquin, Narcan, and vancomycin, pharmacy to dose. EXAMINATION: Blood pressure is 109/65 with a pulse of 84, temperature of 98.6, T-max is 100.1. He is 97% on room air. General description is an elderly male lying in bed in no distress. No tachypnea or accessory muscles of respiration use. HEENT: Shows no pallor or scleral icterus. Oral mucosa membranes are dry. No pharyngeal erythema or thrush. Neck: Trachea central. No thyromegaly. Lungs unlabored breathing with decreased breath sounds in the bases. No wheeze or crackles. Heart S1, S2. Regular rate and rhythm. ABDOMEN: Soft, no tenderness. No guarding. No rigidity. No organomegaly. EXTREMITIES: No edema of the feet. Skin examination: No rash or mass palpable. NEUROLOGICAL: Patient is awake, alert, oriented x3. Mood and affect normal. LABS: Hemoglobin 13.4, white count 15.8. His BUN of 15, creatinine 1.0. Electrolytes have been normal. Liver enzymes are normal. Urine was positive. Influenza serology negative. Urine is currently showing a gram-negative. Blood culture has been pending. DIAGNOSTIC IMPRESSION/PLAN: 1. Patient admitted to the hospital with sepsis in this patient who did have a low- grade fever. Did have elevated white count. Source is likely urinary in this patient who did have a possibility of and previous history of urinary tract infection likely gram negative pathogen, clinically doubt gram positive with urine also showing only gram-negative at this point. 2. Patient does have a PENICILLIN ALLERGY that will limit the number of antibiotics that could be safely used. PLAN: 1. Discontinue the Levaquin and vancomycin. 2. Start the patient on Rocephin 2 g IV piggyback daily. 3. Depending on the clinical response as well as cultures, we will adjust the medication further if needed. Thank you for this consultation. We will follow this patient along with you. MMODL / IJN: [id number] /
[2018-06-18] MEDS: SODIUM CHLORIDE 0.9% 1,000 ML IV SCH (05:54)
[2018-06-18 08:08] LABS: Basophils % (A) 0 %; Eosinophils # (A) 0.1 k/uL (0-0.7); Eosinophils % (A) 1 %; HCT 41.1 % (39.0-53.0); HGB 13.2 gm/dL (13.0-17.5); Lymphocytes # (A) 2.1 k/uL (1.0-4.8); Lymphocytes % (A) 18 %; MCH 29.6 pg (25.0-35.0); MCHC 32.3 g/dL (31.0-37.0); MCV 91.6 fL (80.0-100.0); Mean Platelet Volume 6.3; Monocytes # (A) 0.7 k/uL (0-1.0); Monocytes % (A) 6 %; Neutrophils # (A) 8.6 k/uL (1.3-7.7); Neutrophils % (A) 73 %; Platelet Count 209 k/uL (150-450); RBC 4.48 m/uL (4.30-5.90); RDW 13.2 % (11.5-15.5); WBC 11.8 k/uL (3.8-10.6)
[2018-06-18 08:22] LABS: Anion Gap 6 mmol/L; Blood Urea Nitrogen 12 mg/dL (9-20); Calcium 8.7 mg/dL (8.4-10.2); Carbon Dioxide 26 mmol/L (22-30); Chloride 107 mmol/L (98-107); Glucose 93 mg/dL (74-99); Potassium 4.3 mmol/L (3.5-5.1); Sodium 139 mmol/L (137-145)
[2018-06-18] MEDS: HEPARIN SODIUM,PORCINE 5,000 UNIT/ML 1 ML VIAL SQ SCH ×2 (08:56→22:59)
[2018-06-18] MEDS: cefTRIAXone 2,000 MG in SODIUM CHLORIDE 0.9% 100 ML IVPB SCH (08:56)
[2018-06-18] MEDS: FAMOTIDINE 20 MG TAB PO SCH ×2 (08:57→22:59)
--- NOTE | 2018-06-18 10:59 | P.PN ---
Subjective This is a pleasant 63% small with past medical history of pneumonia and left inguinal hernia about 10 years ago. Patient presents because of dysuria and difficulty urinating. Patient states that his problems started last Sunday by 3 days ago with dysuria and urgency with increased frequency small amount of urine. And yesterday he could not void so he decided to come to the emergency room. Patient was complaining also from loose bowel movement and mild right upper quadrant abdominal pain. He was comes in with dry cough no phlegm. No much dyspnea or chest pain. On admission he had a fever of 100.1. Blood pressure 1 or 2 Currently he is Little bit hypotensive 98/61. Currently his blood pressure. Bolus of 1 L of fluid is a provided and started on normal saline 100 mm per hour Patient already given ceftriaxone, levofloxacin and IV vancomycin twice a day in the emergency room. on admission showing creatinine 1.05, and this morning 1.02. Rest of the CMP was unremarkable. Leukocytosis of 17.5, down to 15.8 K. Darline CBC was unremarkable. Urinalysis was suspicious for infection with large leukocyte esterase and WBC 159 in the urine. Urine culture sent and result is pending. 06/18/2018 Patient was lying in bed comfortable with no abdominal pain. No nausea vomiting. His urine symptoms feels better today. Neurological evaluation is appreciated, most likely patient has renal cell carcinoma. Patient is aware about this diagnosis and he told me he will follow-up with his urologist upon discharge as well as with Dr. jurado. Urine culture is pending at continue with empiric antibiotics and IV fluids. Vitals stable and blood pressure is improved. Creatinine is 0.9. And leukocytosis are trending down Objective - Vital Signs Vital signs: Vital Signs Temp 99.7 F H 06/18/18 03:47 Pulse 94 06/18/18 03:48 Resp 18 06/18/18 03:48 BP 118/67 06/18/18 03:47 Pulse Ox 96 06/18/18 03:47 Intake & Output 06/17/18 06/18/18 06/18/18 18:59 06:59 18:59 Intake Total 100 Output Total 800 1275 Balance -800 -1275 100 Weight 108 kg Intake: Oral 100 Output: Urine 800 1275 Other: Voiding Method Urinal # Voids 0 3 - Exam GENERAL: The patient is alert and oriented x3, not in any acute distress. Well developed, well nourished. HEENT: Pupils are round and equally reacting to light. EOMI. No scleral icterus. No conjunctival pallor. Normocephalic, atraumatic. No pharyngeal erythema. No thyromegaly. CARDIOVASCULAR: S1 and S2 present. No murmurs, rubs, or gallops. PULMONARY: Chest is clear to auscultation, no wheezing or crackles. ABDOMEN: Soft, nontender, nondistended, normoactive bowel sounds. No palpable organomegaly. MUSCULOSKELETAL: No joint swelling or deformity. EXTREMITIES: No cyanosis, clubbing, or pedal edema. NEUROLOGICAL: Gross neurological examination did not reveal any focal deficits. SKIN: No rashes. - Labs CBC & Chem 7: 06/18/18 07:52 06/18/18 07:52 Labs: Abnormal Lab Results - Last 24 Hours (Table) 06/18/18 Range/Units 07:52 WBC 11.8 H (3.8-10.6) k/uL Neutrophils # 8.6 H (1.3-7.7) k/uL Microbiology - Last 24 Hours (Table) 06/16/18 18:45 Blood Culture - Preliminary Blood No Growth after 24 hours 06/16/18 18:52 Urine Culture - Preliminary Urine,Voided Gram Neg Bacilli Assessment and Plan Assessment: Acute urinary tract infection New infiltrate and lung bases, suspicious for pneumonia, mild Leukocytosis, secondary to above Left kidney mass, about 3.9 cm. Suspicious for angiomyolipoma Loose bowel movement, mostly reactive diarrhea. Right lobe hepatic cyst, 1.5 cm Large left side inguinal and scrotal hernia. Plan: This is a pleasant 63 years old male who presents with UTI,and enlarging left renal mass. Continue with antibiotics, continue with IV fluids. Urological consult. Call infectious disease consult. Bladder scan. Pain management. Labs and medication were reviewed. Continue same treatment. Continue with symptomatic treatment. Resume home medication. Monitor lytes and vitals. DVT and GI prophylaxis. Further recommendations of the clinical course of the patient DVT prophylaxis: Subcutaneous heparin GI Prophylaxis: Pepcid PT/OT: Pending Prognosis is guarded
--- NOTE | 2018-06-18 17:11 | CDI ---
Documentation Clarification Form Date: 06/18/2018 4:55:00 PM From: Lisa Mcmanus RN, CCDS Admit Date: 06/16/2018 11:39:00 PM Patient Name: Francisco Morrell Visit Number: [id number] Discharge Date: ATTENTION: The Clinical Documentation Specialists (CDI) and [facility] Coding Staff appreciate your assistance in clarifying documentation. Please respond to the clarification below the line at the bottom and electronically sign. The CDI & [facility] Coding staff will review the response and follow-up if needed. Please note: Queries are made part of the Legal Health Record. If you have any questions, please contact the author of this message via ITS. Dr. Chiu Sheet The patient presented with the following: Abdominal pain, fever and difficulty urinating. History/Risk Factors: No reported history Clinical Indicators: Patient is complaining of frequency urgency and dysuria with fever at home. WBC 17.5 Urine shows positive for nitrite and Large Leukocyte Esterase, WBC 159, Urine culture: Gram negative Bacilli, showing E coli Lactic acid: 1.2 Blood cultures: No growth to Date Vitals signs on admission: 102/67 131 20 99.6, 100.1 Other Clinical Indicators: EKG sinus tachycardia rate 111 Treatment: ID Consult: 06/17/18 Dr. Botello: Patient admitted to the hospital with sepsis in this patient who did have a low-grade fever. Did have elevated white count. Source is likely urinary tract likely gram negative pathogen. 06/18/18 ID: Patient with gram-negative urinary tract infection with likely pyelonephritis. Urine showing E coli Antibiotics: Rocephin IV IV Bolus x2 Monitor Labs, Vital signs IV Fluids In your professional opinion, please clarify if these findings signify one of the following conditions, whether the condition is POA, and cause, if known: Condition Sepsis ruled out Sepsis POA Other, please specify Unable to determine Sepsis Criteria (2 or more of the following may indicate SIRS): -Temperature < 96.8F (36C) or > 101.0F (38.3C) -Heart Rate > 90 bpm -Respiratory Rate > 20 breaths/min or PaCO2 < 32 mmHg -White Blood Cell Count > 12,000 or < 4,000 cells/mm3 or > 10% bands -Lactate >2.0 mmol/L (>4.0 is equivalent to septic shock) (Last Revision: September 2017) pt meets SIRS criteria with leukocytosis and HR > 90 and fever, pt is with sepsis secondary to UTI. present on admission MTDD
--- NOTE | 2018-06-18 23:03 | PN ---
PROGRESS NOTE DATE OF SERVICE: 06/18/2018. REASON FOR FOLLOWUP: Gram-negative urinary tract infection/pyelonephritis. INTERVAL HISTORY: The patient is currently afebrile. He is breathing comfortably. Denies having any chest pain. No shortness of breath or cough. No abdominal pain. Did have some burning of urine but no difficulty with urination and no diarrhea. PHYSICAL EXAMINATION: Blood pressure 128/70 with a pulse of 90, temperature 97.9, he is 99% on room air. GENERAL DESCRIPTION: An elderly male lying in bed in no distress. RESPIRATORY SYSTEM: Unlabored breathing. Clear to auscultation anteriorly. HEART: S1, S2. Regular rate and rhythm. ABDOMEN: Soft, no tenderness. LABS: White count 11.8 with a BUN of 12, creatinine 0.94. Urine culture with an E coli sensitive pathogen. Blood culture has been negative. DIAGNOSTIC IMPRESSION AND PLAN: Patient with gram-negative urinary tract infection with likely pyelonephritis. Urine is showing E coli with sensitive pathogen. Patient is currently on Rocephin which will be transitioned to oral Cipro 500 mg b.i.d. for another 10 to 12 days for discharge with close outpatient followup. Continue supportive care. MMODL / IJN: [id number] /
[2018-06-18] MEDS: ACETAMINOPHEN TAB 325 MG TAB PO PRN (23:08)
[2018-06-19] MEDS: SODIUM CHLORIDE 0.9% 1,000 ML IV SCH ×3 (04:00→07:56)
[2018-06-19] MEDS: cefTRIAXone 2,000 MG in SODIUM CHLORIDE 0.9% 100 ML IVPB SCH (07:55)
[2018-06-19] MEDS: HEPARIN SODIUM,PORCINE 5,000 UNIT/ML 1 ML VIAL SQ SCH (07:55)
[2018-06-19] MEDS: FAMOTIDINE 20 MG TAB PO SCH (07:55)
[2018-06-19 10:07] LABS: Basophils % (A) 0 %; Eosinophils # (A) 0.3 k/uL (0-0.7); Eosinophils % (A) 4 %; HCT 40.1 % (39.0-53.0); HGB 13.5 gm/dL (13.0-17.5); Lymphocytes # (A) 1.8 k/uL (1.0-4.8); Lymphocytes % (A) 22 %; MCHC 33.7 g/dL (31.0-37.0); MCV 91.9 fL (80.0-100.0); Mean Platelet Volume 7.2; Monocytes # (A) 0.4 k/uL (0-1.0); Monocytes % (A) 5 %; Neutrophils # (A) 5.2 k/uL (1.3-7.7); Neutrophils % (A) 65 %; Platelet Count 217 k/uL (150-450); RBC 4.37 m/uL (4.30-5.90); RDW 13.2 % (11.5-15.5); WBC 8.1 k/uL (3.8-10.6)
[2018-06-19] MEDS ORDERED: CIPROFLOXACIN HCL 500 MG TAB PO SCH (11:15)
--- NOTE | 2018-06-19 13:01 | PN ---
PROGRESS NOTE DATE OF SERVICE: 06/19/2018 REASON FOR FOLLOWUP: E. coli complicated urinary tract infection. INTERVAL HISTORY: The patient did have a low-grade fever of 100.1 last night; however, patient is afebrile since then. The patient is breathing comfortably. Denies having any chest pain, shortness of breath or cough. No abdominal pain or any diarrhea. PHYSICAL EXAMINATION: Blood pressure 106/55, pulse of 79, temperature 98.1, he is 99% on room air. General description is an elderly male, lying in bed in no distress. RESPIRATORY SYSTEM: Unlabored breathing, clear to auscultation anteriorly. HEART: S1, S2. Regular rate and rhythm. ABDOMEN: Soft, no tenderness. LABS: Hemoglobin 13.5, white count 8.1. BUN of 12, creatinine 0.94. Urine with an E. coli with sensitive pathogen. DIAGNOSTIC IMPRESSION AND PLAN: Patient with an Escherichia coli urinary tract infection complicated, currently on Rocephin. White count has normalized. Plan will be to finish therapy with oral Cipro 500 mg twice a day, for another 10-12 days with close outpatient followup. Continue supportive care. MMODL / IJN: [id number] /
[2018-06-19 14:47] VITALS: BP 126/84; PULSE 70; RESP 18; TEMP 97.7
== END 2018-06-19 14:59 | disposition home or self-care (01) | DRG 871 ==
LOC: EC 18:27 → 3SCARD 23:39 → OBSVTOIN 23:39 → INTOOBSV 23:39 → 4MS4W 06-18 20:04
PROVIDERS: ADMIT Internal Medicine; ATTEND Internal Medicine
DX: A41.51 Sepsis due to Escherichia coli [E. coli] (principal); J18.9 Pneumonia, unspecified organism; N39.0 Urinary tract infection, site not specified; N12 Tubulo-interstitial nephritis, not specified as acute or chronic; D17.71 Benign lipomatous neoplasm of kidney; F43.10 Post-traumatic stress disorder, unspecified; K40.90 Unilateral inguinal hernia, without obstruction or gangrene, not specified as recurrent; K44.9 Diaphragmatic hernia without obstruction or gangrene; K76.89 Other specified diseases of liver; Z80.51 Family history of malignant neoplasm of kidney; Z87.01 Personal history of pneumonia (recurrent); Z87.891 Personal history of nicotine dependence; Z88.0 Allergy status to penicillin; Z87.440 Personal history of urinary (tract) infections
CPT/HCPCS: 36415; 71046; 74019; 74177; 80048; 80053; 81001; 83605; 85025; 85610; 85730; 87040; 87077; 87086; 87186; 87502; 93005; 96365; 96366; 96368; 99285

== ENCOUNTER 2022-02-17 08:02 | Emergency (ER) | payer MEDICARE, OTHER ==
[2022-02-17 08:22] VITALS: RESP 18
[2022-02-17] MEDS ORDERED: HYDROcodone/APAP 5-325MG 1 EACH TAB PO STA (08:28)
[2022-02-17] MEDS ORDERED: LIDOCAINE 1% INJ 10MG/ML (20 ML MDV) SQ ONE (08:28)
[2022-02-17] MEDS ORDERED: DIPH,PERTUS(ACELL)TETVAC-LF 0.5 ML VIAL IM ONE (08:28)
--- NOTE | 2022-02-17 08:40 | ED ---
Fall HPI - General Chief Complaint: Fall Stated Complaint: Fall, eye injury Time Seen by Provider: 02/17/22 08:09 Source: patient, RN notes reviewed Mode of arrival: ambulatory - History of Present Illness Initial Comments: This is a 66-year-old male who presents to the emergency department for a fall around 6am. Patient states that he was walking outside, when he thought he he danica something behind him. He quickly turned around to look, causing him to trip and fall. He fell face first. Denies any loss of consciousness or being on any blood thinners. He is currently complaining of some dizziness. He also has an injury above the left eye. States that this had a substantial amount of bleeding. Unsure when his last tetanus vaccine was. Denies any fevers, chills, sore throat, cough, dyspnea, chest pain, palpitations, abdominal pain, nausea, vomiting, diarrhea, or back pain. MD Complaint: fall Fall From: standing Fall Witnessed: no Place Fall Occurred: home Loss of Consciousness: none Prolonged Down Time?: no Location: face Context: tripped/slipped - Related Data Home Medications Medication Instructions Recorded Confirmed Acetaminophen [Tylenol] 325 mg PO Q4H PRN 06/16/18 06/16/18 Previous Rx's Medication Instructions Recorded Ciprofloxacin HCl [Cipro] 500 mg PO BID 10 Days #20 tab 06/19/18 Allergies Allergy/AdvReac Type Severity Reaction Status Date / Time Penicillins Allergy Unknown Verified 02/17/22 08:22 Review of Systems ROS Statement: Those systems with pertinent positive or pertinent negative responses have been documented in the HPI. ROS Other: All systems not noted in ROS Statement are negative. Past Medical History Past Medical History: Pneumonia Additional Past Medical History / Comment(s): Inguinal hernia for 10 years History of Any Multi-Drug Resistant Organisms: None Reported Additional Past Surgical History / Comment(s): left ankle surgery Past Anesthesia/Blood Transfusion Reactions: No Reported Reaction Past Psychological History: PTSD Smoking Status: Never smoker Past Alcohol Use History: None Reported Past Drug Use History: None Reported General Exam Limitations: no limitations General appearance: alert, in no apparent distress Head exam: Present: atraumatic, normocephalic, normal inspection Eye exam: Present: PERRL, EOMI, periorbital swelling (left), periorbital tenderness (left), other (4 cm stellate laceration just inferior to the left eyebrow. Minor active bleeding.) Respiratory exam: Present: normal lung sounds bilaterally. Absent: respiratory distress, wheezes, rales, rhonchi, stridor Cardiovascular Exam: Present: regular rate, normal rhythm, normal heart sounds. Absent: systolic murmur, diastolic murmur, rubs, gallop, clicks Neurological exam: Present: alert, oriented X3, CN II-XII intact Psychiatric exam: Present: normal affect, normal mood Skin exam: Present: warm, dry, intact, normal color. Absent: rash Course Vital Signs 02/17/22 02/17/22 08:19 10:19 Temperature 97.7 F 98.9 F Pulse Rate 86 73 Respiratory 18 18 Rate Blood Pressure 127/74 127/89 O2 Sat by Pulse 99 100 Oximetry Procedures - Laceration Laceration #1 Consent Obtained: verbal consent Indication: laceration Site: other (just inferior to the left eyebrow) Size (cm): 4 Description: stellate Depth: simple, single layer Anesthetic Used: lidocaine 1% Anesthesia Technique: local infiltration Amount (mls): 2 Type of Sutures: nylon Size of Sutures: 5-0 Number of Sutures: 6 Technique: simple, interrupted Medical Decision Making - Medical Decision Making This is a 66-year-old male who presents to the emergency department for a head injury and laceration above the left eye. Computed tomography scan of the brain was obtained revealing no signs of intracranial hemorrhage or facial fractures. He does have soft tissue swelling in the left periorbital region. The laceration above the left eye was repaired with sutures. His tetanus status was updated. He is instructed to return in 7-10 days for suture removal. Advised ibuprofen and Tylenol as needed for pain relief. Signs and symptoms of concussions were reviewed as well as the risk for second impact syndrome if he were to acquire a subsequent head injury before fully recovering from this one. Return precautions reviewed in depth, the patient is instructed to return to the emergency department with any new, worsening, or concerning symptoms. Patient verbalized understanding. This case was discussed in detail with the attending ED physician. Presentation, findings, and treatment plan discussed in detail as well. - Radiology Data Radiology results: report reviewed, image reviewed Disposition Clinical Impression: Fall, Laceration, eyelid, left Disposition: HOME SELF-CARE Instructions (If sedation given, give patient instructions): Care For Your Stitches (ED), Concussion (ED) Additional Instructions: Return to the emergency department with any new, worsening, or concerning symptoms and in 7-10 days for removal of your stitches. Take Ibuprofen and Tylenol as needed for headaches and swelling. Do not apply ice directly over the eyeball, keep it protected with a towel and then apply ice to the swollen and painful area. If you are unable to see or have any visual changes, return immediately for reevaluation. Is patient prescribed a controlled substance at d/c from ED?: No Referrals: Linh Matthews MD [Primary Care Provider] - 1-2 days
--- NOTE | 2022-02-17 09:04 | CT ---
EXAMINATION TYPE: CT brain wo con DATE OF EXAM: 02/17/2022 COMPARISON: None HISTORY: trip and fall, facial trauma to left orbit CT DLP: 1202.[address] of the brain was performed. The ventricles, basal cisterns and sulci overlying the cerebral convexities demonstrate mild enlargem ent. Posterior fossa arachnoid cyst on the left measures approximately 4.6 x 2.9 cm. There is no evidence for intracranial hemorrhage or sulcal effacement. There is decreased attenuation about the periventricular white matter and deep white matter of both c erebral hemispheres, compatible with chronic small vessel ischemia. Differential diagnosis does inclu de demyelination. No mass effects are seen.No midline shift. Osseous calvarium is intact. Mild left periorbital soft tissue swelling. If symptoms persist consider MRI. IMPRESSION: 1. Age related atrophic and chronic small vessel ischemic change without acute intracranial process s een at this time.
[2022-02-17 10:20] VITALS: BP 127/89; PULSE 73; TEMP 98.9
== END 2022-02-17 10:20 | disposition home or self-care (01) ==
LOC: EC 08:02
DX: S01.112A Laceration without foreign body of left eyelid and periocular area, initial encounter (principal); Z23 Encounter for immunization; Z88.0 Allergy status to penicillin; W01.0XXA Fall on same level from slipping, tripping and stumbling without subsequent striking against object, initial encounter; Y93.01 Activity, walking, marching and hiking
CPT/HCPCS: 70450; 90715; 12013; 90471; 99284; J2001

== ENCOUNTER 2024-04-08 08:27 | Inpatient (IN) | payer MEDICARE, OTHER ==
[~2024-04-08 08:27] MED LIST: HYDROmorphone 0.5 MG/0.5 ML SYRINGE IVP PRN; LIDOCAINE 1% (10MG/ML) FOR IV START INTRADERMA PRN; fentaNYL (PF) 50 MCG/ML 2 ML AMP IV PRN
[2024-04-08] MEDS: LACTATED RINGERS 1,000 ML IV SCH (09:30)
[2024-04-08] MEDS: HEPARIN SODIUM,PORCINE 5,000 UNIT/ML 1 ML VIAL SQ PRN (09:30)
[2024-04-08] MEDS: ACETAMINOPHEN TAB 500 MG TAB PO PRN (09:30)
[2024-04-08] MEDS: DEXAMETHASONE SOD PHOSPHATE 4 MG/ML 1 ML VIAL IV ONE (09:30)
[2024-04-08] MEDS: ONDANSETRON 4 MG/2 ML VIAL IVP ONE (09:30)
[2024-04-08 09:31] LABS: Basophils % (A) 0 %; Eosinophils # (A) 0.4 k/uL (0-0.7); Eosinophils % (A) 4 %; HCT 49.6 % (39.0-53.0); HGB 16.3 gm/dL (13.0-17.5); Lymphocytes # (A) 2.7 k/uL (1.0-4.8); Lymphocytes % (A) 33 %; MCH 31.5 pg (25.0-35.0); MCHC 32.9 g/dL (31.0-37.0); MCV 95.6 fL (80.0-100.0); Mean Platelet Volume 8.7; Monocytes # (A) 0.5 k/uL (0-1.0); Monocytes % (A) 6 %; Neutrophils # (A) 4.5 k/uL (1.3-7.7); Neutrophils % (A) 54 %; Platelet Count 237 k/uL (150-450); RBC 5.19 m/uL (4.30-5.90); RDW 13.4 % (11.5-15.5); WBC 8.2 k/uL (3.8-10.6)
[2024-04-08] MEDS: IV FLUID CONTINUATION 1,000 ML IV ONE (09:47)
[2024-04-08] MEDS ORDERED: LIDOCAINE 1% INJ 10MG/ML (20 ML MDV) ONE (10:05)
[2024-04-08] MEDS ORDERED: fentaNYL (PF) 50 MCG/ML 2 ML AMP ONE (10:05)
[2024-04-08] MEDS ORDERED: MIDAZOLAM 2 MG/2 ML VIAL ONE (10:05)
[2024-04-08] MEDS ORDERED: PROPOFOL 10 MG/ML 20 ML VIAL IV ONE (10:05)
[2024-04-08 10:11] LABS: Prothrombin Time 11.2 sec (10.0-12.5)
[2024-04-08 10:13] LABS: African American GFR (CKD) 69 (>60 ml/min/1.73 sqM); Anion Gap 4 mmol/L; Blood Urea Nitrogen 22 mg/dL (9-20); Calcium 9.2 mg/dL (8.4-10.2); Carbon Dioxide 27 mmol/L (22-30); Chloride 109 mmol/L (98-107); Glucose 94 mg/dL (74-99); Non-African American GFR(CKD) 60 (>60 ml/min/1.73 sqM); Potassium 4.6 mmol/L (3.5-5.1); Sodium 140 mmol/L (137-145)
[2024-04-08] MEDS: LIDOCAINE 1%-EPI 1:100,000 20 ML VIAL SQ ONE (10:26)
[2024-04-08] MEDS: LACTATED RINGERS 1,000 ML IV ONE ×2 (10:44→11:15)
--- NOTE | 2024-04-08 11:30 | P.OP ---
Date of Procedure: 04/08/24 Preoperative Diagnosis: kmassive incarcerated left inguinal hernia Postoperative Diagnosis: Incarcerated left inguinal hernia Procedure(s) Performed: Open repair of left incarcerated inguinal hernia Left orchiectomy Anesthesia: spinal Surgeon: Kit Sapp Estimated Blood Loss (ml): 25 Pathology: other (Left testicle/hernia sac) Condition: stable Disposition: PACU Description of Procedure: The patient was placed on the operative table in the supine position. He received spinal anesthetic and sedation. Patient's left groin was prepped in a sterile fashion. Patient had a massive left inguinal hernia. The hernia was nonreducible. The skin was incised in the left groin using blunt sharp dissection electrocautery the subcu tissues were divided off of the hernia sac. The hernia sac was very large. It appeared to have incarcerated bowel within the hernia. The hernia sac was opened. The patient had incarcerated sigmoid colon. A portion of the wall of the hernia sac was the colonic wall. The hernia sac was dissected and freed up. There was a small serosal tear of the colonic wall which was secured secured with 3-0 GI silk suture. At this point the hernia was inspected. The hernia mouth was quite large. The colon was reduced back into the peritoneal cavity after excising the redundant hernia sac. Due to the size of the hernia hernia opening. Decided perform an orchiectomy. The left testicle was brought up to the wound. I then the cord structures were divided between Emily clamps and ligated with 0 silk ties. The specimen sent to pathology. The the hernia defect was then closed by us 0 Ethibond suture pop- offs. The shelving edge of the pubic tubercle was secured to the transversalis fascia. And then the fascia external bleak was then oversewn over top of this with 0 Vicryl suture. There is no bleeding seen. Memo's fascia closed with 2-0 Vicryl. Skin was closed with burke. Patient tolerated well. Sent to recovery in stable condition.
[2024-04-08] MEDS: PHENYLEPHRINE 40 MG in SODIUM CHLORIDE 0.9% 250 ML IV SCH (11:45)
[2024-04-08] MEDS: SODIUM CHLORIDE 0.9% 1,000 ML IV ONE (12:43)
[2024-04-08] MEDS: DILTIAZEM DRIP BOLUS FROM BAG 1 MG SOLN IV ONE (12:45)
[2024-04-08] MEDS: DILTIAZEM 125 MG in SODIUM CHLORIDE 0.9% 100 ML IV SCH (12:46)
--- NOTE | 2024-04-08 13:04 | P.CRDCN ---
History of Present Illness History of present illness: HISTORY OF PRESENT ILLNESS: This is a 68-year-old male with a past medical history significant for kidney mass, and inguinal hernia. Patient does not follow with a cataloging assistant. We have been asked to see the patient in consultation for new onset atrial fibrillation. Patient examined at the bedside in the recovery room. Patient underwent open repair of left incarcerated inguinal hernia and left orchiectomy with Dr. Sapp. According to the patient's nurse in recovery, the patient was noted to be in atrial fibrillation intraoperatively. At the time of examination, the patient remains in atrial fibrillation with heart rate around 120. Patient was initially hypotensive with a blood pressure in the 70s80s. Per nursing, he received 1 L of IV fluids. Patient's blood pressure is 109/63 at the time of examination. He denies any chest pain or pressure. He denies any shortness of breath. Denies any dizziness or lightheadedness. Denies any palpitations. He denies any previous known history of atrial fibrillation. He reports a family history of heart disease but states he has no cardiac history to his knowledge. DIAGNOSTICS: - EKG reveals A-fib with RVR - Laboratory data: WBC 8.2. Hemoglobin 16.3. Platelet count 237. Sodium 140. Potassium 4.6. BUN 22. Creatinine 1.22. - Current home cardiac medications include none REVIEW OF SYSTEMS: At the time of my exam: CONSTITUTIONAL: Denies fever or chills. HEENT: Denies blurred vision, vision changes, or eye pain. Denies hemoptysis CARDIOVASCULAR: Denies chest pain. Denies orthopnea. Denies PND. Denies palpit ations RESPIRATORY: Denies shortness of breath. GASTROINTESTINAL: Denies abdominal pain. Denies nausea or vomiting. HEMATOLOGIC: Denies bleeding disorders. GENITOURINARY: Denies any blood in urine. SKIN: Denies pruitis. Denies rash. PHYSICAL EXAM: VITAL SIGNS: Reviewed. GENERAL: Well-developed in no acute distress. HEENT: Head is normocephalic. Pupils are equal, round. Sclerae anicteric. Mucous membranes of the mouth are moist. Neck supple. No JVD or thyromegaly LUNGS: Respirations even and unlabored. Lungs essentially clear to auscultation bilaterally. HEART: Tachycardic. Irregular rate and rhythm. S1 and S2 heard. ABDOMEN: Soft. Nondistended. Appropriate surgical tenderness. Surgical dressing noted. EXTREMITIES: Normal range of motion. No clubbing or cyanosis. Peripheral pulse s intact. No lower extremity edema NEUROLOGIC: Awake and alert. ASSESSMENT: Status post open repair of left incarcerated inguinal hernia and left orchiectomy Postoperative hypotension, responsive to IV fluids New onset atrial fibrillation with RVR History of kidney mass History of PTSD PLAN: Obtain 2D echo to assess cardiac structure and function Check TSH Check magnesium Give 1 L normal saline IV fluid bolus Do not start Mika-Synephrine as patient's blood pressures are responding to IV fluid resuscitation Begin IV Cardizem bolus and drip Begin metoprolol tartrate 25 mg twice a day if able to take oral medications Patient will need to be started on IV heparin/oral anticoagulation when cleared by general surgery Patient to be admitted to [facility]. with telemetry monitoring Further recommendations pending patient course Nurse practitioner note has been reviewed by physician. Signing provider agrees with the documented findings, assessment, and plan of care documented by LUBE MAN as a scribe. Past Medical History Past Medical History: Cancer, Pneumonia Additional Past Medical History / Comment(s): Inguinal hernia for 10 years heart disease in [facility], kidney cancer, History of Any Multi-Drug Resistant Organisms: None Reported Past Surgical History: Orthopedic Surgery Additional Past Surgical History / Comment(s): left ankle surgery paul cataract surgery Past Anesthesia/Blood Transfusion Reactions: No Reported Reaction Smoking Status: Never smoker - Past Family History Father Family Medical History: Unable to Obtain Medications and Allergies Home Medications Medication Instructions Recorded Confirmed Type Acetaminophen Tab [Tylenol] 650 mg PO Q6H #30 tab 04/08/24 Rx Docusate [Colace] 100 mg PO BID #20 capsule 04/08/24 Rx Ibuprofen [Motrin] 600 mg PO Q6HR PRN #40 tab 04/08/24 Rx oxyCODONE HCL [OxyIR] 5 mg PO Q6H PRN 3 Days #10 tab 04/08/24 Rx Allergies Allergy/AdvReac Type Severity Reaction Status Date / Time Penicillins Allergy Unknown Verified 04/08/24 08:58 Physical Exam Vitals: Vital Signs Temp Pulse Resp BP Pulse Ox 04/08/24 12:45 119 H 16 106/80 100 04/08/24 12:30 104 H 16 105/83 100 04/08/24 12:15 108 H 16 104/75 100 04/08/24 12:00 114 H 16 108/68 100 04/08/24 11:50 115 H 16 109/63 100 04/08/24 11:40 123 H 16 84/58 100 04/08/24 11:30 130 H 18 89/63 100 04/08/24 11:14 97.9 F 140 H 20 72/50 96 04/08/24 09:43 98.0 F 65 16 106/86 98 04/08/24 09:03 98.0 F 65 16 106/86 98 Intake and Output 04/07/24 04/08/24 04/08/24 22:59 06:59 14:59 Intake Total 3050 Output Total 10 Balance 3040 Intake: IV 3050 Output: Estimated Blood Loss 10 Other: Weight 96.8 kg Results 04/08/24 09:21 04/08/24 09:48 Coagulation 04/08/24 Range/Units 09:21 PT 11.2 (10.0-12.5) sec CBC 04/08/24 Range/Units 09:21 WBC 8.2 (3.8-10.6) k/uL RBC 5.19 (4.30-5.90) m/uL Hgb 16.3 (13.0-17.5) gm/dL Hct 49.6 (39.0-53.0) % Plt Count 237 (150-450) k/uL Comprehensive Metabolic Panel 04/08/24 Range/Units 09:48 Sodium 140 (137-145) mmol/L Potassium 4.6 (3.5-5.1) mmol/L Chloride 109 H (98-107) mmol/L Carbon Dioxide 27 (22-30) mmol/L BUN 22 H (9-20) mg/dL Creatinine 1.22 (0.66-1.25) mg/dL Glucose 94 (74-99) mg/dL Calcium 9.2 (8.4-10.2) mg/dL Current Medications Generic Name Dose Route Start Last Admin Trade Name Freq PRN Reason Stop Dose Admin Fentanyl Citrate 50 mcg 04/08/24 07:00 Fentanyl (Pf) 50 Mcg/Ml 2 Ml Amp IV 04/08/24 23:00 Q3M PRN Phase I - Pain Control Hydromorphone HCl 0.5 mg 04/08/24 07:00 Hydromorphone 0.5 Mg/0.5 Ml Syringe IVP 04/08/24 23:00 Q5M PRN Phase 1 or 2 - Pain Control Lactated Ringer's 1,000 mls @ 20 mls/hr 04/08/24 06:03 04/08/24 09:30 Lactated Ringers IV 05/08/24 06:02 20 mls/hr .Q24H ONELIA Administration Phenylephrine HCl 40 mg/ 254 mls @ 18.44 mls/hr 04/08/24 11:45 04/08/24 11:45 Sodium Chloride IV 05/08/24 11:44 Not Given .[id number] ONELIA Protocol 0.5 MCG/KG/MIN Diltiazem HCl 125 mg/ Sodium 125 mls @ 5 mls/hr 04/08/24 13:00 04/08/24 12:46 Chloride IV 5 mg/hr .Q24H ONELIA 5 mls/hr Administration 5 MG/HR Sodium Chloride 1,000 mls @ 999 mls/hr 04/08/24 12:31 04/08/24 12:43 Saline 0.9% IV 04/08/24 13:31 Not Given .Q1H1M ONE Lidocaine HCl 0.1 ml 04/08/24 06:03 Lidocaine 1% (10mg/Ml) For Iv Start INTRADERMA 05/08/24 06:02 PER PROTOCOL PRN IV Start Intake and Output 04/07/24 04/08/24 04/08/24 22:59 06:59 14:59 Intake Total 3050 Output Total 10 Balance 3040 Intake: IV 3050 Output: Estimated Blood Loss 10 Other: Weight 96.8 kg Patient Weight 04/09/24 06:59 Weight 96.8 kg 04/08/24 09:21 04/08/24 09:48
[2024-04-08 13:51] LABS: T4, Free (Free Thyroxine) 1.22 ng/dL (0.78-2.19)
[2024-04-08] MEDS: METOPROLOL TARTRATE 25 MG TAB PO SCH (14:33)
[2024-04-08] MEDS: SODIUM CHLORIDE 0.9% 1,000 ML IV SCH (14:45)
[2024-04-08] MEDS ORDERED: HYDROmorphone 1 MG/ML 1 ML SYRINGE IVP PRN (16:24)
[2024-04-08] MEDS: HYDROmorphone 2 MG/ML 1 ML SYRINGE IVP PRN (16:46)
--- NOTE | 2024-04-09 11:00 | CA ---
Transthoracic Echo Report Name: Francisco Morrell Age: 68 Gender: M : 1955 Exam Date: 04/08/2024 12:35 Exam Location: [place] Echo Ht (in): 73 Wt (lb): 213 Ordering Physician: Amy Soria Attending/Referring Phys: [id number], Estella [employer] Driver Emily Zamora RDCS Procedure CPT: Indications: LV function, new afib Cardiac Hx: Technical Quality: Technically difficult study Contrast 1: Definity Total Dose (mL): 2 Contrast 2: Total Dose (mL): MEASUREMENTS (Male / Female) Normal Values 2D ECHO LV Diastolic Diameter PLAX 5.2 cm 4.2 - 5.9 / 3.9 - 5.3 cm LV Systolic Diameter PLAX 3.9 cm IVS Diastolic Thickness 0.7 cm 0.6 - 1.0 / 0.6 - 0.9 cm LVPW Diastolic Thickness 0.9 cm 0.6 - 1.0 / 0.6 - 0.9 cm LV Relative Wall Thickness 0.3 LVOT Diameter 2.2 cm LV Diastolic Volume MOD BP 110.3 cm??? 67 - 155 / 56 - 104 cm??? LV Systolic Volume MOD BP 69.7 cm??? 22 - 58 / 19 - 49 cm??? LV Ejection Fraction MOD BP 36.8 % >= 55 % LV Cardiac Index MOD BP 1807.4 cm???/min???m??? LV Diastolic Volume MOD 4C 105.6 cm??? LV Systolic Volume MOD 4C 70.5 cm??? LV Ejection Fraction MOD 4C 33.2 % LV Cardiac Index MOD 4C 1561.8 cm???/min???m??? LV Diastolic Length 4C 7.7 cm LV Systolic Length 4C 6.9 cm LV Diastolic Volume MOD 2C 110.2 cm??? LV Systolic Volume MOD 2C 67.7 cm??? LV Ejection Fraction MOD 2C 38.6 % LV Cardiac Index MOD 2C 1891.7 cm???/min???m??? LV Diastolic Length 2C 8.1 cm LV Systolic Length 2C 6.8 cm LA Volume 49.3 cm??? 18 - 58 / 22 - 52 cm??? LA Volume Index 21.9 cm???/m??? 16 - 28 cm???/m??? DOPPLER AV Peak Velocity 81.0 cm/s AV Peak Gradient 2.6 mmHg AV Mean Velocity 63.6 cm/s AV Mean Gradient 1.7 mmHg AV Velocity Time Integral 14.0 cm LVOT Peak Velocity 72.4 cm/s LVOT Peak Gradient 2.1 mmHg LVOT Velocity Time Integral 11.8 cm LVOT Stroke Volume 46.5 cm??? LVOT Stroke Volume Index 21.0 ml/m??? LVOT Cardiac Index 2070.3 cm???/min???m??? AV Area Cont Eq vti 3.3 cm??? AV Area Cont Eq pk 3.5 cm??? FINDINGS Left Ventricle Mildly increased left ventricular systolic volume. Moderately decreased left ventricular ejection fraction. Left ventricular ejection fraction is estimated at 30-35 %. Grade 2 diastolic dysfunction. Right Ventricle Normal right ventricular size and function. Right Atrium Right atrial dilatation. Left Atrium Moderate left atrial dilatation. Mitral Valve Structurally normal mitral valve. Mitral valve thickened. [id number] mitral regurgitation. Aortic Valve No aortic valve stenosis or regurgitation. Thickened aortic valve without stenosis. Tricuspid Valve Structurally normal tricuspid valve. [id number] tricuspid regurgitation. Pulmonic Valve Structurally normal pulmonic valve. Pericardium No pericardial effusion. Aorta Normal size aortic root and proximal ascending aorta. CONCLUSIONS Moderate to severe LV systolic dysfunction with an ejection fraction of 30-35% Mild to moderate mitral regurgitation Mild to moderate tricuspid regurgitation Previewed by: Dr. Rolly Frost MD (Electronically Signed) Final Date: 09 April 2024 10:59
[2024-04-09] MEDS ORDERED: ONDANSETRON 4 MG/2 ML VIAL IVP PRN (11:08)
--- NOTE | 2024-04-09 11:19 | P.PN ---
Subjective Progress Note Date: 04/09/24 HISTORY OF PRESENT ILLNESS: This is a 68-year-old male with a past medical history significant for kidney mass, and inguinal hernia. Patient does not follow with a international nurse. We have been asked to see the patient in consultation for new onset atrial fibrillation. Patient examined at the bedside in the recovery room. Patient underwent open repair of left incarcerated inguinal hernia and left orchiectomy with Dr. Sapp. According to the patient's nurse in recovery, the patient was noted to be in atrial fibrillation intraoperatively. At the time of examination, the patient remains in atrial fibrillation with heart rate around 120. Patient was initially hypotensive with a blood pressure in the 70s80s. Per nursing, he received 1 L of IV fluids. Patient's blood pressure is 109/63 at the time of examination. He denies any chest pain or pressure. He denies any shortness of breath. Denies any dizziness or lightheadedness. Denies any palpitations. He denies any previous known history of atrial fibrillation. He reports a family history of heart disease but states he has no cardiac history to his knowledge. DIAGNOSTICS: - EKG reveals A-fib with RVR - Laboratory data: WBC 8.2. Hemoglobin 16.3. Platelet count 237. Sodium 140. Potassium 4.6. BUN 22. Creatinine 1.22. - Current home cardiac medications include none 04/09 Patient is seen and examined on the cardiac stepdown unit. Patient has been maintained on IV Cardizem at 5 mg/h. No anticoagulation has been started until cleared by general surgery. Patient remains in atrial fibrillation at 79 bpm. Blood pressure 108/74, pulse ox 97% on room air. Echocardiogram is pending. Patient is on a heart healthy diet. He is passing gas. Lab work obtained yesterday revealed TSH 0.38 with a normal free T4 of 1.22. Magnesium 1.8. PHYSICAL EXAM: VITAL SIGNS: Reviewed. GENERAL: Well-developed in no acute distress. HEENT: Head is normocephalic. Pupils are equal, round. Sclerae anicteric. Mucous membranes of the mouth are moist. Neck supple. No JVD or thyromegaly LUNGS: Respirations even and unlabored. Lungs essentially clear to auscultation bilaterally. HEART: Irregular rate and rhythm. S1 and S2 heard. ABDOMEN: Soft. Nondistended. Appropriate surgical tenderness. Surgical dressing noted. EXTREMITIES: Normal range of motion. No clubbing or cyanosis. Peripheral pulses intact. No lower extremity edema NEUROLOGIC: Awake and alert. ASSESSMENT: Status post open repair of left incarcerated inguinal hernia and left orchiectomy Postoperative hypotension, responsive to IV fluids New onset paroxysmal atrial fibrillation with controlled rate History of kidney mass History of PTSD PLAN: Obtain 2D echo to assess cardiac structure and function Discontinue Cardizem drip Increase metoprolol tartrate to 50 mg twice a day We will plan to start patient on Eliquis 5 mg twice daily once cleared by general surgery Further recommendations pending patient course Nurse practitioner note has been reviewed by physician. Signing provider agrees with the documented findings, assessment, and plan of care documented by MEDICAL AFFAIRS SPECIALIST as a scribe. Objective - Vital Signs Vital signs: Vital Signs Temp 98.3 F 04/09/24 04:00 Pulse 100 04/09/24 04:00 Resp 19 04/09/24 04:00 BP 108/74 04/09/24 04:00 Pulse Ox 97 04/09/24 04:00 FiO2 Intake & Output 04/08/24 04/09/24 04/09/24 18:59 06:59 18:59 Intake Total 3230 281 Output Total 10 1350 Balance 3220 -1350 281 Weight 96.8 kg 96.8 kg Intake: IV 3050 Intake, IV Titration 101 Amount Diltiazem 125 mg In 101 Sodium Chloride 0.9% 100 ml @ 5 MG/HR 5 mls/hr IV .Q24H [facility] Rx#:[id number] Oral 180 180 Output: Urine 1350 Estimated Blood Loss 10 - Labs CBC & Chem 7: 04/08/24 09:21 04/08/24 09:48 Labs: Abnormal Lab Results - Last 24 Hours (Table) 04/08/24 Range/Units 09:48 TSH 0.380 L (0.465-4.680) mIU/L
[2024-04-09 11:24] LABS: NT-Pro-B-Type Natriuretic Pept 3420 pg/mL
--- NOTE | 2024-04-09 11:48 | P.CONS ---
History of Present Illness - Reason for Consult Consult date: 04/09/24 Medical Management - History of Present Illness This is a pleasant 68-year-old male, patient of Dr Linh Matthews, with medical history significant for kidney cancer, PTSD. Patient is a never smoker denies any alcohol use. He comes in for an open repair of a left incarcerated inguinal hernia he is postoperative day #1 today. While in recovery patient was noted to be in atrial fibrillation with heart rate up into the 120s. He was admitted to the medical floor with a consult placed to cardiology and medical. He was started on IV heparin and IV Cardizem drip. His blood count is unremarkable, chloride 109, BUN of 22 creatinine of 1.22, his proBNP was mildly elevated at 3420. TSH was 0.380 and a free T4 was 1.22. Cardiogram was completed revealing an moderate to severe LV systolic dysfunction with an ejection fraction of 30 to 35% with mild to moderate mitral regurgitation and mild to moderate tricuspid regurgitation. Patient denies having any chest pain does report that he has intermittent episodes of shortness of breath and difficulty breathing. Has been on and off over the last few years. He does not endorse a personal history of heart failure however states that at least for members of his family have cardiac disease. At this time patient remains in atrial fibrillation heart rate is now controlled. REVIEW OF SYSTEMS: CONSTITUTIONAL: No fever, no malaise, no fatigue. HEENT: No recent visual problems or hearing problems. Denied any sore throat. CARDIOVASCULAR: No chest pain, orthopnea, PND, no palpitations, no syncope. PULMONARY: No shortness of breath, no cough, no hemoptysis. GASTROINTESTINAL: No diarrhea, no nausea, no vomiting, no abdominal pain. NEUROLOGICAL: No headaches, no weakness, no numbness. HEMATOLOGICAL: Denies any bleeding or petechiae. GENITOURINARY: Denies any burning micturition, frequency, or urgency. MUSCULOSKELETAL/RHEUMATOLOGICAL: Denies any joint pain, swelling, or any muscle pain. ENDOCRINE: Denies any polyuria or polydipsia. The rest of the 14-point review of systems is negative. PHYSICAL EXAMINATION: GENERAL: The patient is alert and oriented x3, not in any acute distress. Well developed, well nourished. HEENT: Pupils are round and equally reacting to light. EOMI. No scleral icterus. No conjunctival pallor. Normocephalic, atraumatic. No pharyngeal erythema. No thyromegaly. CARDIOVASCULAR: S1 and S2 present. No murmurs, rubs, or gallops. PULMONARY: Chest is clear to auscultation, no wheezing or crackles. ABDOMEN: Soft, nontender, nondistended, normoactive bowel sounds. No palpable organomegaly. MUSCULOSKELETAL: No joint swelling or deformity. EXTREMITIES: No cyanosis, clubbing, or pedal edema. NEUROLOGICAL: Gross neurological examination did not reveal any focal deficits. SKIN: No rashes. Assessment and Plan Cardiomyopathy ischemic vs. nonischemic with EF 30-35% New onset atrial fibrillation with RVR Acute systolic CHF with reduced EF mildly elevated proBNP POD #1 repair of incarcerated left inguinal hernia Hx of kidney cancer GI prophylaxis DVT prophylaxis as per primary service Plan Cardiology on consultation awaiting decision from general surgery patient is a candidate for IV or oral anticoagulation Transition from Cardizem to oral metoprolol heart rate is not controlled patient remains in atrial fibrillation. Noted the echocardiogram findings and pending further recommendations from cardiology. The impression and plan of care has been dictated by Sneha King Nurse Practitioner as directed. Dr. Barney MD I have performed a history and physical examination and medical decision making of this patient, discussed the same with the dictator, and agree with the dictators assessment and plan as written, documented as a scribe. Based on total visit time, I have performed more than 50% of this visit. Past Medical History Past Medical History: Cancer, Pneumonia Additional Past Medical History / Comment(s): Inguinal hernia for 10 years heart disease in familly, kidney cancer, History of Any Multi-Drug Resistant Organisms: None Reported Past Surgical History: Orthopedic Surgery Additional Past Surgical History / Comment(s): left ankle surgery paul cataract surgery Past Anesthesia/Blood Transfusion Reactions: No Reported Reaction Past Psychological History: PTSD Smoking Status: Never smoker Past Alcohol Use History: None Reported Past Drug Use History: None Reported - Past Family History Father Family Medical History: Myocardial Infarction ([place]) Medications and Allergies Home Medications Medication Instructions Recorded Confirmed Type Acetaminophen Tab [Tylenol] 650 mg PO Q6H #30 tab 04/08/24 Rx Docusate [Colace] 100 mg PO BID #20 capsule 04/08/24 Rx Ibuprofen [Motrin] 600 mg PO Q6HR PRN #40 tab 04/08/24 Rx oxyCODONE HCL [OxyIR] 5 mg PO Q6H PRN 3 Days #10 tab 04/08/24 Rx Allergies Allergy/AdvReac Type Severity Reaction Status Date / Time Penicillins Allergy Unknown Verified 04/08/24 08:58 Physical Exam Vitals: Vital Signs Temp Pulse Resp BP Pulse Ox 04/09/24 04:00 98.3 F 100 19 108/74 97 04/08/24 23:52 98.5 F 91 16 107/61 98 04/08/24 19:53 98.0 F 90 19 111/60 95 04/08/24 16:15 98.0 F 109 H 17 112/82 97 04/08/24 14:21 97.8 F 100 16 107/82 100 04/08/24 13:44 109 H 14 102/67 99 04/08/24 13:23 109 H 16 128/75 100 04/08/24 13:00 120 H 16 103/71 100 04/08/24 12:45 119 H 16 106/80 100 04/08/24 12:30 104 H 16 105/83 100 04/08/24 12:15 108 H 16 104/75 100 04/08/24 12:00 114 H 16 108/68 100 04/08/24 11:50 115 H 16 109/63 100 04/08/24 11:40 123 H 16 84/58 100 04/08/24 11:30 130 H 18 89/63 100 04/08/24 11:14 97.9 F 140 H 20 72/50 96 04/08/24 09:43 98.0 F 65 16 106/86 98 04/08/24 09:03 98.0 F 65 16 106/86 98 Intake and Output 04/08/24 04/09/24 04/09/24 22:59 06:59 14:59 Intake Total 180 Output Total 650 700 Balance -470 -700 Intake: Oral 180 Output: Urine 650 700 Other: Weight 96.8 kg Results CBC & Chem 7: 04/08/24 09:21 04/08/24 09:48 Labs: Abnormal Lab Results - Last 24 Hours (Table) 04/08/24 04/08/24 Range/Units 09:48 09:48 Chloride 109 H (98-107) mmol/L BUN 22 H (9-20) mg/dL TSH 0.380 L (0.465-4.680) mIU/L Assessment and Plan Time with Patient: Less than 30
[2024-04-09] MEDS: MAGNESIUM SULFATE-D5W PMX 1 GM in DEXTROSE/WATER 1 100ML.BAG IVPB ONE (12:54)
--- NOTE | 2024-04-09 14:13 | P.PN ---
Subjective Progress Note Date: 04/09/24 SURGICAL PROGRESS NOTE CHIEF COMPLAINT: Left incarcerated inguinal hernia HISTORY OF PRESENT ILLNESS: Patient is postop day 1 status post open repair of left incarcerated inguinal hernia and left orchiectomy. Intraoperatively patient had A-fib with RVR. He is currently on the cardiac floor. He is fol lowed by cardiology service and had been on a Cardizem drip. They have started metoprolol.. Patient reports his pain is controlled. He is having flatus. He had nausea earlier that improved. No vomiting. PHYSICAL EXAM: VITAL SIGNS: Reviewed. GENERAL: Well-developed in no acute distress. ABDOMEN: Soft. Nondistended. Left inguinal incision site dressing clean dry and intact NEUROLOGIC: Alert and oriented. Cranial nerves II through XII grossly intact. ASSESSMENT: 1. Incarcerated left inguinal hernia PLAN: -[place] added for oral pain medication -Zofran as needed ordered for antiemetics -Change dressing to silver Optifoam -Encourage patient to ambulate if okay with cardiology service -Consult medicine for medical management -Continue to hold anticoagulation for today Physician [employer] Membership Sales Agent note has been reviewed by physician. Signing provider agrees with the documented findings, assessment, and plan of care. I have personally seen and examined the patient, reviewed the ERP PM /PAs history, exam and MDM and agree with the assessment and plan as written. Based on total visit time, I have performed more than 50% of the visit. As above: Patient doing well after surgical repair incarcerated left inguinal hernia yesterday. Minimal pain and minimal swelling at the surgical site. Dressing changed. Increase activity. Possible discharge tomorrow if cleared by cardiology. Objective - Vital Signs Vital signs: Vital Signs Temp 98.2 F 04/09/24 08:00 Pulse 84 04/09/24 08:00 Resp 16 04/09/24 08:00 BP 96/62 04/09/24 08:00 Pulse Ox 97 04/09/24 08:00 FiO2 Intake & Output 04/08/24 04/09/24 04/09/24 18:59 06:59 18:59 Intake Total 3230 461 Output Total 10 1350 500 Balance 3220 -1350 -39 Weight 96.8 kg 96.8 kg Intake: IV 3050 Intake, IV Titration 101 Amount Diltiazem 125 mg In 101 Sodium Chloride 0.9% 100 ml @ 5 MG/HR 5 mls/hr IV .Q24H [facility] Rx#:[id number] Oral 180 360 Output: Urine 1350 500 Estimated Blood Loss 10 Other: Voiding Method Urinal - Labs CBC & Chem 7: 04/08/24 09:21 04/08/24 09:48
[2024-04-09 15:29] LABS: Chol/HDL Ratio 3.21 Ratio; LDL Cholesterol,Calculated 96.6 mg/dL (0.0-131.0); VLDL Calculation 19.76 mg/dL (5.00-40.00)
[2024-04-09] MEDS: HYDROcodone/APAP 5-325MG 1 EACH TAB PO PRN (16:45)
[2024-04-09] MEDS: FAMOTIDINE 20 MG TAB PO SCH (20:52)
[2024-04-09] MEDS: METOPROLOL TARTRATE 50 MG TAB PO SCH (20:52)
[2024-04-10] MEDS: DILTIAZEM ORAL 30 MG TAB PO STA (00:41)
[2024-04-10] MEDS: APIXABAN 5 MG TAB PO SCH (09:28)
[2024-04-10] MEDS: AMIODARONE 200 MG TAB PO SCH (09:28)
--- NOTE | 2024-04-10 13:03 | P.PN ---
Subjective Progress Note Date: 04/10/24 HISTORY OF PRESENT ILLNESS: This is a 68-year-old male with a past medical history significant for kidney mass, and inguinal hernia. Patient does not follow with a sketcher. We have been asked to see the patient in consultation for new onset atrial fibrillation. Patient examined at the bedside in the recovery room. Patient underwent open repair of left incarcerated inguinal hernia and left orchiectomy with Dr. Sapp. According to the patient's nurse in recovery, the patient was noted to be in atrial fibrillation intraoperatively. At the time of examination, the patient remains in atrial fibrillation with heart rate around 120. Patient was initially hypotensive with a blood pressure in the 70s80s. Per nursing, he received 1 L of IV fluids. Patient's blood pressure is 109/63 at the time of examination. He denies any chest pain or pressure. He denies any shortness of breath. Denies any dizziness or lightheadedness. Denies any palpitations. He denies any previous known history of atrial fibrillation. He reports a family history of heart disease but states he has no cardiac history to his knowledge. DIAGNOSTICS: - EKG reveals A-fib with RVR - Laboratory data: WBC 8.2. Hemoglobin 16.3. Platelet count 237. Sodium 140. Potassium 4.6. BUN 22. Creatinine 1.22. - Current home cardiac medications include none 04/09 Patient is seen and examined on the cardiac stepdown unit. Patient has been maintained on IV Cardizem at 5 mg/h. No anticoagulation has been started until cleared by general surgery. Patient remains in atrial fibrillation at 79 bpm. Blood pressure 108/74, pulse ox 97% on room air. Echocardiogram is pending. Patient is on a heart healthy diet. He is passing gas. Lab work obtained yesterday revealed TSH 0.38 with a normal free T4 of 1.22. Magnesium 1.8. 04/10 Patient is seen and examined. Echocardiogram reveals moderate to severe LV systolic dysfunction with EF of 30 to 35%, mild to moderate MR, mild to moderate TR. proBNP 3420. A1c 5.6. Triglycerides 98, cholesterol 169, LDL 96, HDL 52. Patient denies any new concerns. Patient has been in atrial fibrillation intermittently running between 130 and 150 versus in the 80s. He is currently maintained on metoprolol tartrate 50 mg twice daily. We have received clearance from general surgery to resume Eliquis which will be done today. Blood pressure 106/69. Pulse ox 98% on room air. PHYSICAL EXAM: VITAL SIGNS: Reviewed. GENERAL: Well-developed in no acute distress. HEENT: Head is normocephalic. Pupils are equal, round. Sclerae anicteric. Mucous membranes of the mouth are moist. Neck supple. No JVD or thyromegaly LUNGS: Respirations even and unlabored. Lungs essentially clear to auscultation bilaterally. HEART: Irregular rate and rhythm. S1 and S2 heard. ABDOMEN: Soft. Nondistended. Appropriate surgical tenderness. Surgical dressing noted. EXTREMITIES: Normal range of motion. No clubbing or cyanosis. Peripheral pulses intact. No lower extremity edema NEUROLOGIC: Awake and alert. ASSESSMENT: Status post open repair of left incarcerated inguinal hernia and left orchiectomy Postoperative hypotension, responsive to IV fluids New onset paroxysmal atrial fibrillation with poorly controlled rate History of kidney mass History of PTSD PLAN: Continue metoprolol tartrate 50 mg twice a day Start patient on amiodarone 200 mg twice daily for 2 weeks and then 200 mg daily 1 dose of oral Cardizem 90 mg Resume Eliquis 5 mg twice daily Continue telemetry monitoring Further recommendations pending patient course Nurse practitioner note has been reviewed by physician. Signing provider agrees with the documented findings, assessment, and plan of care documented by QUALITY REP as a scribe. Objective - Vital Signs Vital signs: Vital Signs Temp 98.1 F 04/10/24 03:43 Pulse 89 04/10/24 03:43 Resp 18 04/10/24 03:43 BP 106/69 04/10/24 03:43 Pulse Ox 98 04/10/24 03:43 FiO2 Intake & Output 04/09/24 04/10/24 04/10/24 18:59 06:59 18:59 Intake Total 641 0 Output Total 825 825 Balance -184 -825 0 Weight 95.8 kg Intake: Intake, IV Titration 101 Amount Diltiazem 125 mg In 101 Sodium Chloride 0.9% 100 ml @ 5 MG/HR 5 mls/hr IV .Q24H [facility] Rx#:[id number] Oral 540 0 Output: Urine 825 825 Other: Voiding Method Urinal Urinal - Labs CBC & Chem 7: 04/08/24 09:21 04/08/24 09:48
[2024-04-10] MEDS: METOPROLOL TARTRATE 25 MG TAB PO STA (13:56)
--- NOTE | 2024-04-10 14:04 | P.PN ---
Subjective Progress Note Date: 04/10/24 SURGICAL PROGRESS NOTE CHIEF COMPLAINT: Left incarcerated inguinal hernia HISTORY OF PRESENT ILLNESS: Patient is postop day #2 status post open repair of left incarcerated inguinal hernia and left orchiectomy. Intraoperatively patient had A-fib with RVR. He is currently on the cardiac floor. Patient did have A-fib RVR last night. Cardiology has adjusted medications. They are recommending to keep him 1 more day for monitoring. Patient denies any nausea or vomiting. He is having flatus. Pain is controlled. His surgical dressing was changed. PHYSICAL EXAM: VITAL SIGNS: Reviewed. GENERAL: Well-developed in no acute distress. ABDOMEN: Soft. Nondistended. Left inguinal incision site dressing clean dry and intact NEUROLOGIC: Alert and oriented. Cranial nerves II through XII grossly intact. ASSESSMENT: 1. Incarcerated left inguinal hernia PLAN: -Continue cardiology management of A-fib -Continue pain management -Continue regular diet -Okay to resume Eliquis -Possible discharge tomorrow if cleared by cardiology Physician [employer] Air Traffic Control Specialist note has been reviewed by physician. Signing provider agrees with the documented findings, assessment, and plan of care. I have personally seen and examined the patient, reviewed the SECOND WORKER /PAs history, exam and MDM and agree with the assessment and plan as written. Based on total visit time, I have performed more than 50% of the visit. As above: Patient laying in bed. Patient argumentative today. Patient states he wants to go home and there. Denies pain. Apparently he is not getting out of bed and walking. Apparently he is not eating much at all. He wanted to atrial fibrillation with rapid rate again today. Patient not cooperating with cardiology's recommendations or medications. Discussed the importance of doing so with the patient. Continue cardiac workup and management at this time. Objective - Vital Signs Vital signs: Vital Signs Temp 98.0 F 04/10/24 08:00 Pulse 124 H 04/10/24 08:00 Resp 16 04/10/24 08:00 BP 127/86 04/10/24 08:00 Pulse Ox 98 04/10/24 08:00 FiO2 Intake & Output 04/09/24 04/10/24 04/10/24 18:59 06:59 18:59 Intake Total 641 0 Output Total 647 514 3397 Balance -184 825 -1050 Weight 95.8 kg Intake: Intake, IV Titration 101 Amount Diltiazem 125 mg In 101 Sodium Chloride 0.9% 100 ml @ 5 MG/HR 5 mls/hr IV .Q24H [facility] Rx#:[id number] Oral 540 0 Output: Urine 024 609 5805 Other: Voiding Method Urinal Urinal Urinal - Labs CBC & Chem 7: 04/08/24 09:21 04/08/24 09:48
--- NOTE | 2024-04-10 19:48 | P.PN ---
Subjective Progress Note Date: 04/10/24 This is a pleasant 68-year-old male, patient of Dr Linh Matthews, with medical history significant for kidney cancer, PTSD. Patient is a never smoker denies any alcohol use. He comes in for an open repair of a left incarcerated inguinal hernia he is postoperative day #1 today. While in recovery patient was noted to be in atrial fibrillation with heart rate up into the 120s. He was admitted to the medical floor with a consult placed to cardiology and medical. He was started on IV heparin and IV Cardizem drip. His blood count is unremarkable, chloride 109, BUN of 22 creatinine of 1.22, his proBNP was mildly elevated at 3420. TSH was 0.380 and a free T4 was 1.22. Cardiogram was completed revealing an moderate to severe LV systolic dysfunction with an ejection fraction of 30 to 35% with mild to moderate mitral regurgitation and mild to moderate tricuspid regurgitation. Patient denies having any chest pain does report that he has intermittent episodes of shortness of breath and difficulty breathing. Has been on and off over the last few years. He does not endorse a personal history of heart failure however states that at least for members of his family have cardiac disease. At this time patient remains in atrial fibrillation heart rate is now controlled. 04/10/2024 Patient is evaluated today in follow up on the medical floor. Went back into afib with RVR today, heart rate in the 120s. Started on oral amiodarone. He has been started on oral eliquis. Postoperative day #2 open repair of left incarcerated inguinal hernia. Cleared by gen surgery for discharge. REVIEW OF SYSTEMS: CONSTITUTIONAL: No fever, no malaise, no fatigue. HEENT: No recent visual problems or hearing problems. Denied any sore throat. CARDIOVASCULAR: No chest pain, orthopnea, PND, no palpitations, no syncope. PULMONARY: No shortness of breath, no cough, no hemoptysis. GASTROINTESTINAL: No diarrhea, no nausea, no vomiting, no abdominal pain. NEUROLOGICAL: No headaches, no weakness, no numbness. PHYSICAL EXAMINATION: GENERAL: The patient is alert and oriented x3, not in any acute distress. Well developed, well nourished. HEENT: Pupils are round and equally reacting to light. EOMI. No scleral icterus. No conjunctival pallor. Normocephalic, atraumatic. No pharyngeal erythema. No th yromegaly. CARDIOVASCULAR: S1 and S2 present. No murmurs, rubs, or gallops. PULMONARY: Chest is clear to auscultation, no wheezing or crackles. ABDOMEN: Soft, nontender, nondistended, normoactive bowel sounds. No palpable organomegaly. MUSCULOSKELETAL: No joint swelling or deformity. EXTREMITIES: No cyanosis, clubbing, or pedal edema. NEUROLOGICAL: Gross neurological examination did not reveal any focal deficits. SKIN: No rashes. Assessment and Plan Cardiomyopathy ischemic vs. nonischemic with EF 30-35% New onset atrial fibrillation with RVR Acute systolic CHF with reduced EF mildly elevated proBNP POD #2 repair of incarcerated left inguinal hernia Hx of kidney cancer GI prophylaxis DVT prophylaxis Eliquis Plan Cardiology on consultation Patient has been started on oral eliquis. Started on oral amiodarone as heart rate up into the 120s today. Continues on oral metoprolol Possible D/C home in the next 24 hours The impression and plan of care has been dictated by Sneha King, Nurse Practitioner as directed. Dr. Barney MD I have performed a history and physical examination and medical decision making of this patient, discussed the same with the dictator, and agree with the dictators assessment and plan as written, documented as a scribe. Based on total visit time, I have performed more than 50% of this visit. Objective - Vital Signs Vital signs: Vital Signs Temp 98.3 F 04/10/24 16:00 Pulse 124 H 04/10/24 16:00 Resp 16 04/10/24 16:00 BP 134/86 04/10/24 16:00 Pulse Ox 98 04/10/24 16:00 FiO2 Intake & Output 04/10/24 04/10/24 04/11/24 06:59 18:59 06:59 Intake Total 60 Output Total 825 1625 Balance -825 -1565 Weight 95.8 kg Intake: Oral 60 Output: Urine 825 1625 Other: Voiding Method Urinal Urinal - Labs CBC & Chem 7: 04/08/24 09:21 04/08/24 09:48 Assessment and Plan Time with Patient: Less than 30
[2024-04-10] MEDS: METOPROLOL TARTRATE 25 MG TAB PO SCH (21:03)
[2024-04-11 05:17] VITALS: TEMP 98.2
[2024-04-11 08:42] VITALS: BP 127/89; PULSE 133; RESP 18
[2024-04-11] MEDS: METOPROLOL TARTRATE 50 MG TAB PO SCH (09:21)
--- NOTE | 2024-04-11 12:37 | P.PN ---
Subjective Progress Note Date: 04/11/24 HISTORY OF PRESENT ILLNESS: This is a 68-year-old male with a past medical history significant for kidney mass, and inguinal hernia. 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 We have been asked to see the patient in consultation for new onset atrial fibrillation. Patient examined at the bedside in the recovery room. Patient underwent open repair of left incarcerated inguinal hernia and left orchiectomy with Dr. Sapp. According to the patient's nurse in recovery, the patient was noted to be in atrial fibrillation intraoperatively. At the time of examination, the patient remains in atrial fibrillation with heart rate around 120. Patient was initially hypotensive with a blood pressure in the 70s80s. Per nursing, he received 1 L of IV fluids. Patient's blood pressure is 109/63 at the time of examination. He denies any chest pain or pressure. He denies any shortness of breath. Denies any dizziness or lightheadedness. Denies any palpitations. He denies any previous known history of atrial fibrillation. He reports a family history of heart disease but states he has no cardiac history to his knowledge. DIAGNOSTICS: - EKG reveals A-fib with RVR - Laboratory data: WBC 8.2. Hemoglobin 16.3. Platelet count 237. Sodium 140. Potassium 4.6. BUN 22. Creatinine 1.22. - Current home cardiac medications include none 04/09 Patient is seen and examined on the cardiac stepdown unit. Patient has been maintained on IV Cardizem at 5 mg/h. No anticoagulation has been started until cleared by general surgery. Patient remains in atrial fibrillation at 79 bpm. Blood pressure 108/74, pulse ox 97% on room air. Echocardiogram is pending. Patient is on a heart healthy diet. He is passing gas. Lab work obtained yesterday revealed TSH 0.38 with a normal free T4 of 1.22. Magnesium 1.8. 04/10 Patient is seen and examined. Echocardiogram reveals moderate to severe LV systolic dysfunction with EF of 30 to 35%, mild to moderate MR, mild to moderate TR. proBNP 3420. A1c 5.6. Triglycerides 98, cholesterol 169, LDL 96, HDL 52. Patient denies any new concerns. Patient has been in atrial fibrillation intermittently running between 130 and 150 versus in the 80s. He is currently maintained on metoprolol tartrate 50 mg twice daily. We have received clearance from general surgery to resume Eliquis which will be done today. Blood pressure 106/69. Pulse ox 98% on room air. 04/11 This morning, heart rate is running 120 and goes up to 150 with ambulating. Patient ambulated well with physical therapy. Patient has refused to take any of his medications. Discussed in detail the need for him to take his medications and he is in agreement but when the nurse comes in to give them, patient refuses again. Again discussed with the patient the need for his medications to control his heart rate and also to prevent stroke. Patient denies having any lightheadedness or dizziness, no chest pain no palpitations. He states he is feeling fine. Blood pressure 127/89, pulse ox 97% on room air. PHYSICAL EXAM: VITAL SIGNS: Reviewed. GENERAL: Well-developed in no acute distress. HEENT: Head is normocephalic. Pupils are equal, round. Sclerae anicteric. Mucous membranes of the mouth are moist. Neck supple. No JVD or thyromegaly LUNGS: Respirations even and unlabored. Lungs essentially clear to auscultation bilaterally. HEART: Irregular rate and rhythm. S1 and S2 heard. ABDOMEN: Soft. Nondistended. Appropriate surgical tenderness. Surgical dressing noted. EXTREMITIES: Normal range of motion. No clubbing or cyanosis. Peripheral pulses intact. No lower extremity edema NEUROLOGIC: Awake and alert. ASSESSMENT: Status post open repair of left incarcerated inguinal hernia and left orchiectomy Postoperative hypotension, responsive to IV fluids New onset paroxysmal atrial fibrillation with poorly controlled rate History of kidney mass History of PTSD PLAN: Continue metoprolol tartrate 100 mg twice a day, amiodarone 200 mg daily, Eliquis 5 mg twice daily --prescriptions have been sent to his pharmacy Patient is cleared for discharge. Doubt the patient will be compliant with medications nor with follow-up. Nurse practitioner note has been reviewed by physician. Signing provider agrees with the documented findings, assessment, and plan of care documented by ORTHOTIST PROSTHETIST as a scribe. Objective - Vital Signs Vital signs: Vital Signs Temp 98.2 F 04/11/24 05:16 Pulse 133 H 04/11/24 08:00 Resp 18 04/11/24 08:00 BP 127/89 04/11/24 08:00 Pulse Ox 97 04/11/24 05:16 FiO2 Intake & Output 04/10/24 04/11/24 04/11/24 18:59 06:59 18:59 Intake Total 60 Output Total 1625 450 Balance -1565 -450 Weight 93.3 kg Intake: Oral 60 Output: Urine 1625 450 Other: Voiding Method Urinal - Labs CBC & Chem 7: 04/08/24 09:21 04/08/24 09:48
--- NOTE | 2024-04-11 12:41 | P.DS ---
Providers Date of admission: 04/09/24 11:16 Expected date of discharge: 04/11/24 Attending physician: Kit Sapp Consults: 04/08/24 11:30 Consult Physician Stat Consulting Provider: Rolly Frost Consult Reason/Comments: NEW ONSET AFIB Do you want consulting provider notified?: Already Contacted 04/09/24 08:39 Consult Physician Routine Consulting Provider: Cecilia Corley Consult Reason/Comments: medical management Do you want consulting provider notified?: Yes Primary care physician: [facility] Hospital Course: Discharge diagnoses 1. Incarcerated left inguinal hernia 2. A-fib RVR Hospital course This is a 68-year-old man with a known left incarcerated inguinal hernia he is status post open repair of left incarcerated inguinal hernia and left orch iectomy. Patient did go into A-fib RVR intraoperatively. He required hospitalization for management of his A-fib. He is followed closely by cardiology service. They have adjusted medications. Patient was adamant about going home today. Cardiology did cleared patient for discharge. Patient left AGAINST MEDICAL ADVICE before discharge order could be officially placed. Please refer to chart for any further details. Physician [employer] note has been reviewed by physician. Signing provider agrees with the documented findings, assessment, and plan of care. Patient Condition at Discharge: Stable Plan - Discharge Summary Discharge Rx Participant: No New Discharge Prescriptions: New Apixaban [Eliquis] 5 mg PO BID #60 tab Docusate [Colace] 100 mg PO BID #20 capsule Ibuprofen [Motrin] 600 mg PO Q6HR PRN #40 tab PRN Reason: Pain oxyCODONE HCL [OxyIR] 5 mg PO Q6H PRN 3 Days #10 tab PRN Reason: Pain Acetaminophen Tab [Tylenol] 650 mg PO Q6H #30 tab Amiodarone [Cordarone] 200 mg PO DAILY #30 tab Metoprolol Tartrate [Lopressor] 100 mg PO BID #60 tablet Discharge Medication List Acetaminophen Tab [Tylenol] 650 mg PO Q6H #30 tab 04/08/24 [Rx] Docusate [Colace] 100 mg PO BID #20 capsule 04/08/24 [Rx] Ibuprofen [Motrin] 600 mg PO Q6HR PRN #40 tab 04/08/24 [Rx] oxyCODONE HCL [OxyIR] 5 mg PO Q6H PRN 3 Days #10 tab 04/08/24 [Rx] Amiodarone [Cordarone] 200 mg PO DAILY #30 tab 04/11/24 [Rx] Apixaban [Eliquis] 5 mg PO BID #60 tab 04/11/24 [Rx] Metoprolol Tartrate [Lopressor] 100 mg PO BID #60 tablet 04/11/24 [Rx] Follow up Appointment(s)/Referral(s): Rolly Frost MD [STAFF PHYSICIAN] - 1 Week Kit Sapp MD [STAFF PHYSICIAN] - 04/17/24 2:50 pm Discharge Disposition: LEFT AGAINST MEDICAL ADVICE
--- NOTE | 2024-04-16 22:24 | CDI ---
Documentation Clarification Form Date: 04/16/2024 10:17:01 PM From: Paz Ortega Phone: Admit Date: 04/09/2024 11:16:00 AM Patient Name: Francisco Morrell Visit Number: [id number] Discharge Date: 04/11/2024 09:58:00 AM ATTENTION: The Clinical Documentation Specialists (CDI) and [facility] Coding Staff appreciate your assistance in clarifying documentation. Please respond to the clarification below the line at the bottom and electronically sign. The CDI & [facility] Coding staff will review the response and follow-up if needed. Please note: Queries are made part of the Legal Health Record. If you have any questions, please contact the author of this message via ITS. Doctor/Provider: Kit Sapp Postoperative hypotension is documented Consult 04/08 and following Progress Notes. Additional clarification regarding Postoperative hypotension is requested. Patients Admitting Diagnosis: Incarcerated left inguinal hernia Post-Operative Diagnosis: Incarcerated left inguinal hernia Procedure performed: Openrepairofleft incarcerated inguinal hernia; Leftorchiectomy History/Risk Factors: 68yo M, left incarcerated inguinal hernia, PAF, ASHF, PTSD, MR, TR, Hx kidney Cx, left AMA Clinical Indicators: BP 108/7411/11/2403:00; BP 106/6911/12/2402:43 Treatment: responsive to IV fluids Please clarify if Postoperative hypotension is a complication of the surgical procedure? [ ] Yes [ xx ] No [ ] Other, please specify [ ] Unable to determine (Template Last Revised: August 2020) MTDD
== END 2024-04-11 09:58 | disposition left against medical advice (07) | DRG 350 ==
LOC: OR 08:27 → 3SCARD 11:07 → OR 04-09 11:16
PROVIDERS: ADMIT Surgery; ATTEND Surgery
PROC: 0VTB0ZZ Resection of Left Testis, Open Approach (ICD-10-PCS; 2024-04-08)
PROC: 0YQ60ZZ Repair Left Inguinal Region, Open Approach (ICD-10-PCS; principal; 2024-04-08 10:15)
DX: K40.30 Unilateral inguinal hernia, with obstruction, without gangrene, not specified as recurrent (principal); I50.21 Acute systolic (congestive) heart failure; I48.0 Paroxysmal atrial fibrillation; I08.1 Rheumatic disorders of both mitral and tricuspid valves; I25.5 Ischemic cardiomyopathy; F43.10 Post-traumatic stress disorder, unspecified; Z85.528 Personal history of other malignant neoplasm of kidney; I95.9 Hypotension, unspecified
CPT/HCPCS: 80048; 80061; 83036; 83735; 83880; 84439; 84443; 85025; 85610; 88302; 88305; 93306

== ENCOUNTER → 2024-05-12 | Outpatient (CLI) | payer MEDICARE, OTHER ==
[2024-05-12 14:49] LABS: Basophils # (A) 0.03 X 10*3/uL (0.00-0.10); Basophils % (A) 0.4 %; Eosinophils # (A) 0.25 X 10*3/uL (0.04-0.35); Eosinophils % (A) 3.3 %; HCT 44.7 % (39.6-50.0); HGB 14.6 g/dL (13.0-17.0); Lymphocytes # (A) 2.76 X 10*3/uL (0.90-5.00); Lymphocytes % (A) 36.3 %; MCH 30.7 pg (27.0-32.0); MCHC 32.7 g/dL (32.0-37.0); MCV 94.1 FL (80.0-97.0); Monocytes # (A) 0.73 X 10*3/uL (0.20-1.00); Monocytes % (A) 9.6 %; NRBC Per 100 WBC 0 X 10*3/uL (0.00-0.01); Neutrophils # (A) 3.81 X 10*3/uL (1.80-7.70); Platelet Count 237 X 10*3/uL (140-440); RBC 4.75 X 10*6/uL (4.40-5.60); RDW 13.4 % (11.5-14.5); WBC 7.61 X 10*3/uL (4.50-10.00)
== END | disposition home or self-care (01) ==
LOC: LABPAT 09:31
PROVIDERS: ATTEND Surgery
DX: Z01.818 Encounter for other preprocedural examination (principal); K40.90 Unilateral inguinal hernia, without obstruction or gangrene, not specified as recurrent
CPT/HCPCS: 36415; 85025; 86850; 86900; 86901; 93005

== ENCOUNTER → 2024-05-20 | Day surgery (SDC) | payer MEDICARE, OTHER ==
[~2024-05-20] MED LIST changes: -fentaNYL (PF) 50 MCG/ML 2 ML AMP IV PRN; +fentaNYL (PF) 50 MCG/ML 2 ML AMP IVP PRN
[2024-05-20 08:18] VITALS: TEMP 97.6
[2024-05-20] MEDS: LACTATED RINGERS 1,000 ML IV SCH (08:23)
[2024-05-20] MEDS: IV FLUID CONTINUATION 1,000 ML IV ONE (08:23)
[2024-05-20] MEDS: ACETAMINOPHEN TAB 500 MG TAB PO PRN (08:25)
[2024-05-20] MEDS: DEXAMETHASONE SOD PHOSPHATE 4 MG/ML 1 ML VIAL IV ONE (08:26)
[2024-05-20] MEDS: ONDANSETRON 4 MG/2 ML VIAL IVP ONE (08:27)
[2024-05-20] MEDS: MIDAZOLAM 2 MG/2 ML VIAL IV PRN (08:46)
[2024-05-20 09:02] VITALS: BP 129/91; PULSE 118; RESP 12
[2024-05-20] MEDS: HEPARIN SODIUM,PORCINE 5,000 UNIT/ML 1 ML VIAL SQ PRN (09:03)
[2024-05-20] MEDS: LIDOCAINE 1%-EPI 1:100,000 20 ML VIAL SQ ONE (09:03)
--- NOTE | 2024-05-22 17:56 | P.ANPRN ---
Procedure Note - Anesthesia - Nerve Block Performed Bilateral Erector Spinae Single Time Out Performed: Yes Date of Procedure: 05/20/24 Procedure Start Time: 08:46 Procedure Stop Time: :52 Location of Patient: PreOp Indication: Acute Post-Operative Pain, Requested by Surgeon Sedation Type: Sedate with meaningful contact maintained Preparation: Sterile Prep Position: Supine Needle Types: Pajunk Needle Gauge: 21 Ultrasound used to visualize needle placement: Yes Ultrasound used to observe medication spread: Yes Blood Aspirated: No Pain Paresthesia on Injection Noted: No Resistance on Injection: Normal Image Stored and Saved: Yes Events: Uneventful and Well Tolerated (Ropivacaine 0.5% 15 cc plus normal saline 10 cc plus dexamethasone 4 mg given bilaterally at L1)
== END ==
LOC: OR 07:50
PROVIDERS: ATTEND Surgery
DX: Z53.8 Procedure and treatment not carried out for other reasons (principal); K40.20 Bilateral inguinal hernia, without obstruction or gangrene, not specified as recurrent; Z90.89 Acquired absence of other organs; Z90.01 Acquired absence of eye; Z88.0 Allergy status to penicillin; Z79.899 Other long term (current) drug therapy
CPT/HCPCS: J2250; J1644; J1100; J2405